=== PATIENT | female | born 1940 | race Caucasian/White ===

== ENCOUNTER → 2017-08-11 14:55 | Outpatient (CLI) | payer MEDICARE, SELFPAY | PROVIDERS: PCP Internal Medicine; Visit Provider Internal Medicine | DX: R00.2 Palpitations (principal) | CPT/HCPCS: 93005; 93225; 93226 ==

== ENCOUNTER → 2017-09-01 12:48 | Outpatient (CLI) | payer MEDICARE, SELFPAY ==
--- NOTE | 2017-09-01 | CA_ITS ---
PROCEDURE: 2-D M-mode and color Doppler study INDICATIONS FOR THE TEST: Chest pain COPD Heart Murmur Tobacco Smoking Palpitations+ Fatigue+ Syncope Edema Hypertension Diabetes Mellitus Rheumatic Fever SOB CASTANO Obesity Hyperlipidemia Family History HD Additional History PVC's PATIENT INFORMATION HEIGHT: 66 WEIGHT: 140 GENDER: F B/P: 153/95 2-D/M-MODE INTERPRETATION: 2-D MEASUREMENTS OBSERVED VALUES IN CMS Right Ventricular Dimension (RVDd) 2.4 Interventricular Septum (Thickness)(IVsd) 1.3 Left Ventricular Internal Dimensions(LVIDd) 2.9 Left Ventricular Posterior Wall (Thickness)(LVPWd) 1.0 Aortic Root 2.7 Aortic Cusp Separation 2.0 Left Atrial Dimensions (LAD) 3.7 2D 1. Left atrium is mildly enlarged, left ventricle is normal size, there is mild concentric left ventricular hypertrophy, visually estimated ejection fraction 55% with no obvious regional wall motion abnormality. 2. The right atrium and right ventricle are normal size and contractility. 3. The aortic valve is minimally thickened and fibrosed. 4. The mitral and tricuspid valve leaflets are minimally thickened 5. The pulmonic valve is poorly visualized. 6. No significant pericardial effusion noted. DOPPLER INTERROGATION: Doppler interrogation of the aortic, mitral and tricuspid valvular presence of mild to moderate mitral and mild tricuspid regurgitation, calculated right ventricular systolic pressure is 40 mmHg consistent with mild pulmonary hypertension. Grade 1 diastolic dysfunction seen with tissue Doppler evidence of raised left atrial pressure. CONCLUSION: 1. Mildly enlarged left atrium, normal left ventricular size, mild concentric left ventricular hypertrophy, visually estimated ejection fraction 55% with no obvious regional wall motion abnormality, grade 1 diastolic dysfunction seen with tissue Doppler evidence of raised left atrial pressure. 2. Mild to moderate mitral and mild tricuspid regurgitation 3. No significant pericardial effusion noted.
== END ==
PROVIDERS: Family Provider Internal Medicine; PCP Internal Medicine; Visit Provider Internal Medicine
DX: R00.2 Palpitations (principal); I49.3 Ventricular premature depolarization
CPT/HCPCS: 93306

== ENCOUNTER → 2017-09-10 10:13 | Outpatient (CLI) | payer MEDICARE, SELFPAY ==
[2017-09-10 11:04] LABS: Basophils % 0.9 % (0.1-2.0); Eosinophils # 0.1 K/mm3 (0.0-0.4); Eosinophils % 2.6 % (0.1-12.0); Hematocrit 48.1 % (37.0-47.0); Hemoglobin 15.6 g/dL (12.2-16.2); Lymphocytes % 19.7 K/mm3 (10-50); Mean Corpuscular HGB Conc 32.5 g/dL (31.8-35.4); Mean Corpuscular Hemoglobin 31.9 pg (27.0-31.2); Mean Corpuscular Volume 98.4 fl (81-99); Mean Platelet Volume 7.8 fl (7.4-10.4); Monocytes # 0.3 K/mm3 (0.1-1.0); Neutrophils # 3.4 K/mm3 (1.8-7.8); Neutrophils % 69.9 % (37.0-80.0); Platelet Count 257 K/mm3 (142-424); Red Blood Count 4.89 M/mm3 (4.20-5.40); White Blood Count 4.9 K/mm3 (4.8-10.8)
[2017-09-10 11:31] LABS: Alanine Aminotransferase 24 U/L (12-78); Albumin Level 3.8 gm/dL (3.4-5.0); Albumin/Globulin Ratio 1.1 (1.1-1.8); Alkaline Phosphatase 88 U/L (46-116); Anion Gap 10.4 mEq/L (5-15); Aspartate Amino Transferase 19 U/L (15-37); Bilirubin,Total 0.4 mg/dL (0.2-1.0); Blood Urea Nitrogen 18 mg/dL (7-18); Calcium 9.6 mg/dL (8.5-10.1); Carbon Dioxide 31 mmol/L (21.0-32.0); Chloride 105 mmol/L (98-107); Chol/HDL Ratio 3.3 (1-3.5); Cholesterol 203 mg/dL (140-200); Creatinine,Serum 0.67 mg/dL (0.55-1.02); Estimated Glomerular Filt Rate 86 ml/min (>60); GFR (African American) 104 ML/MIN (>60); Globulin 3.4 gm/dl (1.3-3.2); Glucose 99 mg/dL (74-106); HDL Cholesterol 61 mg/dL (29-89); LDL Cholesterol 118 mg/dL (0-130); Potassium 4.4 mmoL/L (3.5-5.1); Sodium 142 mmol/L (136-145); Total Protein,Serum 7.2 gm/dL (6.4-8.2); Triglycerides 122 mg/dL (30-200); VLDL Cholesterol 24 mg/dL (0-40)
[2017-09-11 19:01] LABS: Vitamin D 25 Hydroxy 41.2 ng/mL (30.0-100.0)
[2017-09-14 15:05] LABS: Cobalt, Plasma None Detected ug/L (0.0-0.9)
[2017-09-14 15:06] LABS: Chromium, Plasma 1.3 ug/L (0.1-2.1)
== END ==
PROVIDERS: Visit Provider Internal Medicine
DX: D72.819 Decreased white blood cell count, unspecified (principal); I10 Essential (primary) hypertension; N15.0 Balkan nephropathy; E55.9 Vitamin D deficiency, unspecified; R00.2 Palpitations; E78.5 Hyperlipidemia, unspecified
CPT/HCPCS: 36415; 80053; 80061; 82495; 82652; 83018; 85025

== ENCOUNTER → 2017-10-20 11:29 | Outpatient (CLI) | payer MEDICARE, SELFPAY | PROVIDERS: Visit Provider Internal Medicine | DX: T14.8XXA Other injury of unspecified body region, initial encounter (principal) | CPT/HCPCS: 36415; 87471 ==

== ENCOUNTER → 2017-11-20 13:04 | Outpatient (CLI) | payer MEDICARE, SELFPAY ==
[2017-11-20 13:28] LABS: Adenovirus F 40/41, stool Not Detected (NotDetected); Astrovirus Not Detected (NotDetected); Campylobacter Not Detected (NotDetected); Clostridium Difficile A/B, PCR Not Detected (NotDetected); Cryptosporidium Not Detected (NotDetected); Cyclospora Cayetanesis Not Detected (NotDetected); Entamoeba histolytica Not Detected (NotDetected); Enteroaggregative E coli Not Detected (NotDetected); Enteropathogenic E coli Not Detected (NotDetected); Enterotoxigenic E coli Not Detected (NotDetected); Giardia lamblia Not Detected (NotDetected); Norovirus Not Detected (NotDetected); Plesimonas Shigalloides, PCR Not Detected (NotDetected); Rotavirus A Not Detected (NotDetected); Salmonella, PCR Not Detected (NotDetected); Sapovirus Not Detected (NotDetected); Shiga-like toxin E coli Not Detected (NotDetected); Shigella Enterovasive E coli Not Detected (NotDetected); Vibrio Cholerae Not Detected (NotDetected); Vibrio, PCR Not Detected (NotDetected); Yersinia Entercolitica, PCR Not Detected (NotDetected)
[2017-11-20 15:37] LABS: Occult Blood,Stool Negative (Negative)
== END ==
PROVIDERS: Visit Provider Internal Medicine
DX: R19.7 Diarrhea, unspecified (principal)
CPT/HCPCS: 82272; 87045; 87177; 87205; 87507; G0328

== ENCOUNTER → 2018-03-29 10:23 | Outpatient (CLI) | payer MEDICARE, SELFPAY ==
[2018-03-29 11:01] LABS: Basophils % 0.7 % (0.1-2.0); Eosinophils # 0.1 K/mm3 (0.0-0.4); Eosinophils % 1.5 % (0.1-12.0); Hematocrit 48.8 % (37.0-47.0); Hemoglobin 15.7 g/dL (12.2-16.2); Lymphocytes # 0.9 K/mm3 (0.7-4.5); Lymphocytes % 17.6 K/mm3 (10-50); Mean Corpuscular HGB Conc 32.2 g/dL (31.8-35.4); Mean Corpuscular Hemoglobin 31.2 pg (27.0-31.2); Mean Platelet Volume 7.3 fl (7.4-10.4); Monocytes # 0.3 K/mm3 (0.1-1.0); Monocytes % 5.7 % (1.7-9.3); Neutrophils # 3.9 K/mm3 (1.8-7.8); Neutrophils % 74.5 % (37.0-80.0); Platelet Count 243 K/mm3 (142-424); Red Blood Count 5.03 M/mm3 (4.20-5.40); White Blood Count 5.2 K/mm3 (4.8-10.8)
[2018-03-29 12:07] LABS: Alanine Aminotransferase 20 U/L (12-78); Albumin Level 3.9 gm/dL (3.4-5.0); Albumin/Globulin Ratio 1.3 (1.1-1.8); Alkaline Phosphatase 79 U/L (46-116); Anion Gap 12.7 mEq/L (5-15); Aspartate Amino Transferase 18 U/L (15-37); Bilirubin,Total 0.6 mg/dL (0.2-1.0); Blood Urea Nitrogen 17 mg/dL (7-18); Calcium 9.1 mg/dL (8.5-10.1); Carbon Dioxide 30 mmol/L (21.0-32.0); Chloride 104 mmol/L (98-107); Cholesterol 255 mg/dL (140-200); Creatinine,Serum 0.72 mg/dL (0.55-1.02); Estimated Glomerular Filt Rate 79 ml/min (>60); GFR (African American) 95 ML/MIN (>60); Glucose 92 mg/dL (74-106); HDL Cholesterol 64 mg/dL (29-89); LDL Cholesterol 162 mg/dL (0-130); Potassium 4.7 mmoL/L (3.5-5.1); Sodium 142 mmol/L (136-145); Total Protein,Serum 6.9 gm/dL (6.4-8.2); Triglycerides 146 mg/dL (30-200); VLDL Cholesterol 29 mg/dL (0-40)
[2018-03-31 06:47] LABS: Cobalt, Plasma None Detected ug/L (0.0-0.9)
[2018-03-31 06:48] LABS: Chromium, Plasma 0.8 ug/L (0.1-2.1)
== END ==
PROVIDERS: PCP Internal Medicine; Visit Provider Internal Medicine
DX: D72.819 Decreased white blood cell count, unspecified (principal); I10 Essential (primary) hypertension; E78.5 Hyperlipidemia, unspecified; E55.9 Vitamin D deficiency, unspecified; R31.29 Other microscopic hematuria; Z96.643 Presence of artificial hip joint, bilateral
CPT/HCPCS: 36415; 80053; 80061; 82495; 82652; 83018; 85025

== ENCOUNTER → 2018-09-28 10:03 | Outpatient (CLI) | payer MEDICARE, SELFPAY ==
[2018-09-28 11:11] LABS: Basophils # 0.1 K/mm3 (0-0.2); Basophils % 0.7 % (0.1-2.0); Eosinophils # 0.2 K/mm3 (0.0-0.4); Eosinophils % 2.1 % (0.1-12.0); Hematocrit 50.8 % (37.0-47.0); Hemoglobin 16.6 g/dL (12.2-16.2); Lymphocytes # 1.8 K/mm3 (0.7-4.5); Lymphocytes % 22.8 % (10-50); Mean Corpuscular HGB Conc 32.7 g/dL (31.8-35.4); Mean Corpuscular Hemoglobin 31.4 pg (27.0-31.2); Mean Corpuscular Volume 95.9 fl (81-99); Mean Platelet Volume 7.2 fl (7.4-10.4); Monocytes # 0.5 K/mm3 (0.1-1.0); Monocytes % 6.8 % (1.7-9.3); Neutrophils # 5.2 K/mm3 (1.8-7.8); Neutrophils % 67.5 % (37.0-80.0); Platelet Count 328 K/mm3 (142-424); Red Cell Distribution Width 13.7 % (11.5-17.5); White Blood Count 7.7 K/mm3 (4.8-10.8)
[2018-09-28 14:02] LABS: Alanine Aminotransferase 30 U/L (12-78); Albumin Level 4.2 gm/dL (3.4-5.0); Albumin/Globulin Ratio 1.1 (1.1-1.8); Alkaline Phosphatase 83 U/L (46-116); Anion Gap 14.3 mEq/L (5-15); Aspartate Amino Transferase 11 U/L (15-37); Bilirubin,Total 0.4 mg/dL (0.2-1.0); Blood Urea Nitrogen 24 mg/dL (7-18); Calcium 9.5 mg/dL (8.5-10.1); Carbon Dioxide 28 mmol/L (21.0-32.0); Chloride 103 mmol/L (98-107); Chol/HDL Ratio 3.7 (1-3.5); Cholesterol 230 mg/dL (140-200); Creatinine,Serum 0.81 mg/dL (0.55-1.02); Estimated Glomerular Filt Rate 69 ml/min (>60); GFR (African American) 83 ML/MIN (>60); Globulin 3.7 gm/dl (1.3-3.2); Glucose 96 mg/dL (74-106); HDL Cholesterol 62 mg/dL (29-89); LDL Cholesterol 145 mg/dL (0-130); Potassium 4.3 mmoL/L (3.5-5.1); Sodium 141 mmol/L (136-145); Total Protein,Serum 7.9 gm/dL (6.4-8.2); Triglycerides 115 mg/dL (30-200); VLDL Cholesterol 23 mg/dL (0-40)
[2018-09-29 09:22] LABS: Homocyst(e)ine 13.1 umol/L (0.0-15.0)
== END ==
PROVIDERS: Visit Provider Internal Medicine
DX: I10 Essential (primary) hypertension (principal); E78.5 Hyperlipidemia, unspecified; E55.9 Vitamin D deficiency, unspecified; M15.0 Primary generalized (osteo)arthritis; D72.819 Decreased white blood cell count, unspecified
CPT/HCPCS: 36415; 80053; 80061; 82652; 83090; 85025; 86141

== ENCOUNTER 2019-02-03 15:00 | Outpatient (RCR) | payer MEDICARE, SELFPAY | END 2019-02-03 15:05 | disposition home or self-care (01) | LOC: PT 15:00 | PROVIDERS: PCP Internal Medicine; Visit Provider Podiatrist Foot & Ankle Surgery | DX: M77.32 Calcaneal spur, left foot (principal); M19.171 Post-traumatic osteoarthritis, right ankle and foot; M72.2 Plantar fascial fibromatosis | CPT/HCPCS: 97014; 97035; 97110; 97140; 97163; G0283 ==

== ENCOUNTER → 2019-10-20 14:37 | Outpatient (CLI) | payer MEDICARE, SELFPAY ==
--- NOTE | 2019-10-20 | CA_ITS ---
APPROVED REPORT Left Lower Extremity Venous Study for DVT. Soft Mud Molder: DARA Indications Lower Extremity Pain: Palpable Cord: Left Varicose Veins Vein Imaging CFV (L): compressive, spontaneous, phasic, augmentation FEM (L): compressive, spontaneous, phasic, augmentation POP (L): compressive, spontaneous, phasic, augmentation PTV (L): Compressible GSV (L): Compressible SSV (L): Compressible Peroneals (L):Compressible Findings No evidence of DVT or superficial thrombophlebitis in the veins scanned of the left lower extremity. Conclusion No evidence of DVT or superficial thrombophlebitis in the veins scanned of the left lower extremity. Electronically signed by : Bakari Marks MD 10/23/2019 17:36:02
== END ==
PROVIDERS: PCP Internal Medicine; Visit Provider Internal Medicine
DX: M79.605 Pain in left leg (principal)
CPT/HCPCS: 93971

== ENCOUNTER → 2020-05-28 10:12 | Outpatient (CLI) | payer MEDICARE, SELFPAY ==
[2020-05-28 10:58] LABS: Basophils # 0.1 K/mm3 (0-0.2); Eosinophils # 0.1 K/mm3 (0.0-0.4); Eosinophils % 1.6 % (0.1-12.0); Hematocrit 46.7 % (37.0-47.0); Hemoglobin 15.4 g/dL (12.2-16.2); Lymphocytes # 0.9 K/mm3 (0.7-4.5); Lymphocytes % 21.1 % (10-50); Mean Corpuscular HGB Conc 32.9 g/dL (31.8-35.4); Mean Corpuscular Hemoglobin 32.2 pg (27.0-31.2); Mean Corpuscular Volume 97.9 fl (81-99); Mean Platelet Volume 8.2 fl (7.4-10.4); Monocytes # 0.3 K/mm3 (0.1-1.0); Monocytes % 6.1 % (1.7-9.3); Neutrophils # 3.1 K/mm3 (1.8-7.8); Neutrophils % 70.2 % (37.0-80.0); Platelet Count 235 K/mm3 (142-424); Red Blood Count 4.77 M/mm3 (4.20-5.40); Red Cell Distribution Width 13.9 % (11.5-17.5); White Blood Count 4.5 K/mm3 (4.8-10.8)
[2020-05-28 12:37] LABS: Alanine Aminotransferase 17 U/L (12-78); Albumin Level 4.2 g/dl (3.5-5.0); Albumin/Globulin Ratio 1.6 (1.1-1.8); Alkaline Phosphatase 68 U/L (38-126); Amylase 83 U/L (30-110); Anion Gap 10.7 mEq/L (5-15); Aspartate Amino Transferase 29 U/L (14-36); Bilirubin,Total 0.5 mg/dl (0.2-1.3); Blood Urea Nitrogen 17 mg/dl (7-17); Calcium 9.6 mg/dl (8.4-10.2); Carbon Dioxide 29 mmol/L (22.0-30.0); Chloride 103 mmol/L (98-107); Chol/HDL Ratio 3.9 (1-3.5); Cholesterol 231 mg/dl (140-200); Estimated Glomerular Filt Rate 97 ml/min (>60); GFR (African American) 117 ML/MIN (>60); Globulin 2.6 g/dL (1.3-3.2); Glucose 103 mg/dl (74-100); HDL Cholesterol 60 mg/dl (40-60); Lipase 179 U/L (23-300); Potassium 4.7 mmoL/L (3.5-5.1); Sodium 138 mmol/L (136-145); Total Protein,Serum 6.8 g/dl (6.3-8.2); Triglycerides 129 mg/dl (30-150); VLDL Cholesterol 26 mg/dL (0-40)
[2020-05-28 12:48] LABS: Direct LDL Cholesterol 133.48 mg/dL (100-129)
[2020-05-29 12:04] LABS: C-Reactive Protein, Cardiac 2.19 mg/L (0.00-3.00)
== END ==
PROVIDERS: Visit Provider Internal Medicine
DX: I10 Essential (primary) hypertension (principal); E78.5 Hyperlipidemia, unspecified; E55.9 Vitamin D deficiency, unspecified; D72.819 Decreased white blood cell count, unspecified; M15.0 Primary generalized (osteo)arthritis; G57.91 Unspecified mononeuropathy of right lower limb; R10.13 Epigastric pain
CPT/HCPCS: 36415; 80053; 80061; 82150; 82306; 83690; 85025; 86141

== ENCOUNTER → 2020-08-16 11:40 | Outpatient (CLI) | payer MEDICARE, SELFPAY ==
[2020-08-16 12:01] LABS: Basophils % 0.6 % (0.1-2.0); Eosinophils # 0.1 K/mm3 (0.0-0.4); Eosinophils % 1.3 % (0.1-12.0); Hematocrit 48.5 % (37.0-47.0); Hemoglobin 15.9 g/dL (12.2-16.2); Lymphocytes # 0.9 K/mm3 (0.7-4.5); Lymphocytes % 15.7 % (10-50); Mean Corpuscular HGB Conc 32.7 g/dL (31.8-35.4); Mean Corpuscular Hemoglobin 31.1 pg (27.0-31.2); Mean Platelet Volume 7.5 fl (7.4-10.4); Monocytes # 0.3 K/mm3 (0.1-1.0); Monocytes % 5.8 % (1.7-9.3); Neutrophils # 4.4 K/mm3 (1.8-7.8); Neutrophils % 76.6 % (37.0-80.0); Platelet Count 253 K/mm3 (142-424); Red Blood Count 5.11 M/mm3 (4.20-5.40); Red Cell Distribution Width 13.7 % (11.5-17.5); White Blood Count 5.8 K/mm3 (4.8-10.8)
[2020-08-16 12:29] LABS: Erythrocyte Sedimentation Rate 4 mm/hr (0-30)
== END ==
PROVIDERS: Visit Provider Internal Medicine
DX: R51.9 Headache, unspecified (principal); H53.8 Other visual disturbances
CPT/HCPCS: 36415; 85025; 85651

== ENCOUNTER → 2021-05-26 14:59 | Outpatient (CLI) | payer MEDICARE, SELFPAY ==
[2021-05-26 15:36] LABS: Eosinophils # 0.1 K/mm3 (0.0-0.4); Eosinophils % 2.2 % (0.1-12.0); Hematocrit 44.9 % (37.0-47.0); Lymphocytes % 25.1 % (10-50); Mean Corpuscular HGB Conc 33.4 g/dL (31.8-35.4); Mean Corpuscular Hemoglobin 32.3 pg (27.0-31.2); Mean Corpuscular Volume 96.7 fl (81-99); Mean Platelet Volume 8.5 fl (7.4-10.4); Monocytes # 0.3 K/mm3 (0.1-1.0); Monocytes % 7.9 % (1.7-9.3); Neutrophils # 2.6 K/mm3 (1.8-7.8); Neutrophils % 63.8 % (37.0-80.0); Platelet Count 231 K/mm3 (142-424); Red Blood Count 4.65 M/mm3 (4.20-5.40); Red Cell Distribution Width 13.5 % (11.5-17.5); White Blood Count 4.1 K/mm3 (4.8-10.8)
[2021-05-26 16:03] LABS: Chloride 101 mmol/L (98-107); Potassium 4.5 mmoL/L (3.5-5.1); Sodium 139 mmol/L (136-145)
[2021-05-26 16:05] LABS: Blood Urea Nitrogen 19 mg/dl (7-17)
[2021-05-26 16:06] LABS: Alanine Aminotransferase 19 U/L (12-78); Albumin Level 4.1 g/dl (3.5-5.0); Alkaline Phosphatase 63 U/L (38-126); Anion Gap 12.5 mEq/L (5-15); Aspartate Amino Transferase 34 U/L (14-36); Bilirubin,Total 0.1 mg/dl (0.2-1.3); Calcium 8.9 mg/dl (8.4-10.2); Carbon Dioxide 30 mmol/L (22.0-30.0); Cholesterol 192 mg/dl (140-200); Estimated Glomerular Filt Rate 81 ml/min (>60); GFR (African American) 98 ML/MIN (>60); Globulin 2.1 g/dL (1.3-3.2); Glucose 83 mg/dl (74-100); HDL Cholesterol 56 mg/dl (40-60); Total Protein,Serum 6.2 g/dl (6.3-8.2); Triglycerides 88 mg/dl (30-150); VLDL Cholesterol 18 mg/dL (0-40)
[2021-05-26 16:15] LABS: C-Reactive Protein 1.4 mg/L (0-4)
[2021-05-26 16:17] LABS: Direct LDL Cholesterol 103.95 mg/dL (100-129)
[2021-05-26 17:14] LABS: MANUAL DIFFERENTIAL MANUAL DIFFERENTIAL (MANUAL DIFF)
[2021-05-26 19:33] LABS: Chol/HDL Ratio 3.4 (1-3.5)
[2021-05-26 23:16] LABS: Eosinophils % 2 % (0-3); Lymphocytes % 30 % (10-50); Monocytes % 2 % (2-9); Neutrophils % 65 % (42-76); Total Cells Counted 100
[2021-05-26 23:17] LABS: Macrocytosis 1+; Platelet Estimate Normal
[2021-05-28 09:13] LABS: Homocyst(e)ine 19.8 umol/L (0.0-19.2)
== END ==
PROVIDERS: Visit Provider Internal Medicine
DX: R00.2 Palpitations (principal); I10 Essential (primary) hypertension; E78.5 Hyperlipidemia, unspecified; E55.9 Vitamin D deficiency, unspecified; D72.819 Decreased white blood cell count, unspecified
CPT/HCPCS: 80053; 80061; 83090; 85007; 85014; 85018; 85048; 85049; 86140

== ENCOUNTER → 2021-09-02 11:03 | Outpatient (CLI) | payer MEDICARE, SELFPAY | PROVIDERS: PCP Internal Medicine; Visit Provider Internal Medicine | DX: Z20.822 Contact with and (suspected) exposure to COVID-19 (principal) | CPT/HCPCS: C9803; U0003; U0005 ==

== ENCOUNTER → 2021-12-12 13:21 | Outpatient (CLI) | payer MEDICARE, SELFPAY ==
[2021-12-12 14:05] LABS: Basophils # 0.1 K/mm3 (0-0.2); Basophils % 1.2 % (0.1-2.0); Eosinophils # 0.1 K/mm3 (0.0-0.4); Eosinophils % 3.2 % (0.1-12.0); Hematocrit 46.4 % (37.0-47.0); Lymphocytes % 24.8 % (10-50); Mean Corpuscular HGB Conc 32.4 g/dL (31.8-35.4); Mean Corpuscular Hemoglobin 32.8 pg (27.0-31.2); Mean Corpuscular Volume 101.3 fl (81-99); Mean Platelet Volume 9.3 fl (7.4-10.4); Monocytes # 0.3 K/mm3 (0.1-1.0); Monocytes % 7.2 % (1.7-9.3); Neutrophils # 2.6 K/mm3 (1.8-7.8); Neutrophils % 63.5 % (37.0-80.0); Platelet Count 237 K/mm3 (142-424); Red Blood Count 4.58 M/mm3 (4.20-5.40); White Blood Count 4.1 K/mm3 (4.8-10.8)
[2021-12-12 14:12] LABS: Alanine Aminotransferase 17 U/L (12-78); Albumin Level 3.9 g/dl (3.5-5.0); Albumin/Globulin Ratio 1.7 (1.1-1.8); Alkaline Phosphatase 65 U/L (38-126); Anion Gap 11.8 mEq/L (5-15); Aspartate Amino Transferase 29 U/L (14-36); Blood Urea Nitrogen 21 mg/dl (7-17); Calcium 9.1 mg/dl (8.4-10.2); Carbon Dioxide 28 mmol/L (22.0-30.0); Chloride 104 mmol/L (98-107); Chol/HDL Ratio 3.9 (1-3.5); Cholesterol 212 mg/dl (140-200); Estimated Glomerular Filt Rate 81 ml/min (>60); GFR (African American) 97 ML/MIN (>60); Globulin 2.3 g/dL (1.3-3.2); Glucose 95 mg/dl (74-100); HDL Cholesterol 54 mg/dl (40-60); Potassium 4.8 mmoL/L (3.5-5.1); Sodium 139 mmol/L (136-145); Total Protein,Serum 6.2 g/dl (6.3-8.2); Triglycerides 77 mg/dl (30-150); VLDL Cholesterol 15 mg/dL (0-40)
[2021-12-12 14:14] LABS: Bilirubin,Total < 0.1 mg/dl (0.2-1.3)
[2021-12-12 14:23] LABS: Direct LDL Cholesterol 119.28 mg/dL (100-129)
[2021-12-12 15:01] LABS: Vitamin B12 440 pg/mL (239-931)
[2021-12-13 09:15] LABS: Homocyst(e)ine 15.3 umol/L (0.0-19.2)
[2021-12-14 08:20] LABS: C-Reactive Protein, Cardiac 2.38 mg/L (0.00-3.00)
== END ==
PROVIDERS: PCP Internal Medicine; Visit Provider Internal Medicine
DX: I10 Essential (primary) hypertension (principal); E78.5 Hyperlipidemia, unspecified; E55.9 Vitamin D deficiency, unspecified; M15.0 Primary generalized (osteo)arthritis
CPT/HCPCS: 80053; 80061; 82607; 83090; 85025; 86141

== ENCOUNTER → 2022-01-07 13:16 | Outpatient (CLI) | payer MEDICARE, SELFPAY ==
--- NOTE | 2022-01-07 13:18 | US_ITS ---
FINAL REPORT CLINICAL HISTORY: BENIGN LIPOMATOUS NEOPLASM; palpable area at top of sternum just medial to left sternoclavicular joint FINDINGS: US CHEST Limited sonographic images were obtained of the soft tissues of the chest. At the area of the palpable abnormality is a 5 mm cyst or other focal fluid collection. This lies medial to the left sternoclavicular joint. IMPRESSION: 5 mm cyst or other focal fluid collection at the area of interest. Reviewed, Interpreted and Dictated by Rohan Wilhelm III, MD Transcribed by Khoi Dunn Authenticated and [facility]
== END ==
PROVIDERS: PCP Internal Medicine; Visit Provider Internal Medicine
DX: D17.9 Benign lipomatous neoplasm, unspecified (principal)
CPT/HCPCS: 76604

== ENCOUNTER → 2022-06-16 12:33 | Outpatient (CLI) | payer MEDICARE, SELFPAY ==
[2022-06-16 13:36] LABS: Basophils # 0.1 K/mm3 (0-0.2); Eosinophils # 0.1 K/mm3 (0.0-0.4); Eosinophils % 2.7 % (0.1-12.0); Hematocrit 46.5 % (37.0-47.0); Hemoglobin 14.7 g/dL (12.2-16.2); Lymphocytes # 1.1 K/mm3 (0.7-4.5); Lymphocytes % 23.2 % (10-50); Mean Corpuscular HGB Conc 31.5 g/dL (31.8-35.4); Mean Corpuscular Hemoglobin 31.1 pg (27.0-31.2); Mean Corpuscular Volume 98.6 fl (81-99); Mean Platelet Volume 8.9 fl (7.4-10.4); Monocytes # 0.3 K/mm3 (0.1-1.0); Monocytes % 6.9 % (1.7-9.3); Neutrophils # 3.1 K/mm3 (1.8-7.8); Neutrophils % 66.2 % (37.0-80.0); Platelet Count 279 K/mm3 (142-424); Red Blood Count 4.71 M/mm3 (4.20-5.40); Red Cell Distribution Width 13.9 % (11.5-17.5); White Blood Count 4.6 K/mm3 (4.8-10.8)
[2022-06-16 14:50] LABS: Chloride 102 mmol/L (98-107)
[2022-06-16 14:51] LABS: Potassium 4.3 mmoL/L (3.5-5.1); Sodium 139 mmol/L (136-145)
[2022-06-16 14:53] LABS: Alanine Aminotransferase 18 U/L (12-78); Alkaline Phosphatase 66 U/L (38-126); Aspartate Amino Transferase 30 U/L (14-36); Bilirubin,Total 0.4 mg/dl (0.2-1.3); Blood Urea Nitrogen 18 mg/dl (7-17); Estimated Glomerular Filt Rate 81 ml/min (>60); GFR (African American) 97 ML/MIN (>60)
[2022-06-16 14:54] LABS: Albumin Level 4.1 g/dl (3.5-5.0); Albumin/Globulin Ratio 1.7 (1.1-1.8); Anion Gap 12.3 mEq/L (5-15); Calcium 8.8 mg/dl (8.4-10.2); Carbon Dioxide 29 mmol/L (22.0-30.0); Chol/HDL Ratio 3.9 (1-3.5); Cholesterol 220 mg/dl (140-200); Globulin 2.4 g/dL (1.3-3.2); Glucose 86 mg/dl (74-100); HDL Cholesterol 57 mg/dl (40-60); Total Protein,Serum 6.5 g/dl (6.3-8.2); Triglycerides 121 mg/dl (30-150); VLDL Cholesterol 24 mg/dL (0-40)
[2022-06-16 15:00] LABS: C-Reactive Protein 1.2 mg/L (0-4)
[2022-06-16 15:05] LABS: Direct LDL Cholesterol 115.36 mg/dL (100-129)
== END ==
PROVIDERS: PCP Internal Medicine; Visit Provider Internal Medicine
DX: I49.3 Ventricular premature depolarization (principal); I10 Essential (primary) hypertension; E78.5 Hyperlipidemia, unspecified; E55.9 Vitamin D deficiency, unspecified; D72.819 Decreased white blood cell count, unspecified; M15.0 Primary generalized (osteo)arthritis
CPT/HCPCS: 80053; 80061; 85025; 86140

== ENCOUNTER → 2022-12-18 13:17 | Outpatient (CLI) | payer MEDICARE, SELFPAY ==
[2022-12-18 14:17] LABS: Basophils % 0.6 % (0.1-2.0); Eosinophils # 0.1 K/mm3 (0.0-0.4); Eosinophils % 1.6 % (0.1-12.0); Hematocrit 44.3 % (37.0-47.0); Hemoglobin 13.8 g/dL (12.2-16.2); Lymphocytes % 21.9 % (10-50); Mean Corpuscular Hemoglobin 30.2 pg (27.0-31.2); Mean Corpuscular Volume 97.5 fl (81-99); Mean Platelet Volume 8.9 fl (7.4-10.4); Monocytes # 0.3 K/mm3 (0.1-1.0); Monocytes % 6.4 % (1.7-9.3); Neutrophils # 3.1 K/mm3 (1.8-7.8); Neutrophils % 69.5 % (37.0-80.0); Platelet Count 256 K/mm3 (142-424); Red Blood Count 4.55 M/mm3 (4.20-5.40); Red Cell Distribution Width 14.4 % (11.5-17.5); White Blood Count 4.5 K/mm3 (4.8-10.8)
[2022-12-18 14:43] LABS: Alanine Aminotransferase 16 U/L (12-78); Albumin Level 3.9 g/dl (3.5-5.0); Albumin/Globulin Ratio 1.8 (1.1-1.8); Alkaline Phosphatase 68 U/L (38-126); Anion Gap 9.6 mEq/L (5-15); Aspartate Amino Transferase 25 U/L (14-36); Bilirubin,Total 0.4 mg/dl (0.2-1.3); Blood Urea Nitrogen 15 mg/dl (7-17); Carbon Dioxide 28 mmol/L (22.0-30.0); Chloride 107 mmol/L (98-107); Chol/HDL Ratio 3.6 (1-3.5); Cholesterol 236 mg/dl (140-200); Estimated Glomerular Filt Rate 96 ml/min (>60); GFR (African American) 116 ML/MIN (>60); Globulin 2.2 g/dL (1.3-3.2); Glucose 92 mg/dl (74-100); HDL Cholesterol 65 mg/dl (40-60); Potassium 4.6 mmoL/L (3.5-5.1); Sodium 140 mmol/L (136-145); Total Protein,Serum 6.1 g/dl (6.3-8.2); Triglycerides 80 mg/dl (30-150); VLDL Cholesterol 16 mg/dL (0-40)
[2022-12-18 14:54] LABS: C-Reactive Protein 1.7 mg/L (0-4); Direct LDL Cholesterol 133.76 mg/dL (100-129)
== END ==
PROVIDERS: PCP Internal Medicine; Visit Provider Internal Medicine
DX: I10 Essential (primary) hypertension (principal); D72.819 Decreased white blood cell count, unspecified; E55.9 Vitamin D deficiency, unspecified; E78.5 Hyperlipidemia, unspecified; M15.0 Primary generalized (osteo)arthritis; N60.19 Diffuse cystic mastopathy of unspecified breast; G57.91 Unspecified mononeuropathy of right lower limb
CPT/HCPCS: 80053; 80061; 85025; 86140

== ENCOUNTER → 2023-02-11 10:55 | Outpatient (CLI) | payer MEDICARE, SELFPAY | PROVIDERS: PCP Internal Medicine; Visit Provider Internal Medicine | DX: R00.2 Palpitations (principal) | CPT/HCPCS: 93225; 93226 ==

== ENCOUNTER → 2023-03-01 12:47 | Outpatient (CLI) | payer MEDICARE, SELFPAY ==
[2023-03-02 13:17] LABS: H. pylori Breath Test Negative (Negative)
== END ==
PROVIDERS: PCP Internal Medicine; Visit Provider Internal Medicine
DX: I49.3 Ventricular premature depolarization (principal)
CPT/HCPCS: 83013

== ENCOUNTER → 2023-03-10 10:04 | Outpatient (CLI) | payer MEDICARE, SELFPAY ==
--- NOTE | 2023-03-10 10:09 | CA_ITS ---
APPROVED REPORT EXAM: Comprehensive 2D, Doppler, and color-flow Echocardiogram Sewer: Marissa Christianson RVT Ht: 5 ft 6 in Wt: 140lbs BSA: 1.72 BP: 153/95 mmHg Indications: PVC'S,PALPS,FATIGUE,COPD,CP,SMOKER 2D Dimensions LVOT 2.04 cm (M/F) 1.5-2.5 LA Volume 62.90 mL LA Volume Index 36.57 mL/m2 (M/F) 16-34 M-Mode Dimensions RVDd 2.32 cm (0.9-2.6) LA Diam 4.07 cm (1.9-4.0) LVDd 4.32 cm (3.5-5.7) Ao Diam 3.35 cm (2.0-3.7) LVDs 2.64 cm (3.5-5.7) IVSd 0.96 cm (0.6-1.1) PWd 0.64 cm (0.6-1.1) EF (Teich) 69.50% FS 38.90% EDV (Teich) 84.00 mL TAPSE 2.56 (<1.7) ESV (Teich) 25.60 mL LV Diastology E Decel Time 190.00 (160-240 msec) E/A Ratio 0.8 MED E' 8.20 (< 7 cm/sec) E'/MED E' Ratio 9.89 (>14) LAT E' 9.40 (<10 cm/sec) E/LAT E' Ratio 8.63 (>14) Aortic Valve AO Peak GR. 8.90 mmHg AO VTI 138.02 (18-25 cm) Mitral Valve MV E Max Sandeep. 81.00 (40-130 cm/s) MV A Velocity 103.00 (40-130 cm/s) E/A Ratio 0.79 MV Decel. Time 190.00 (160-240 ms) MV PHT 56.00 ms Pulmonary Valve PV Peak Velocity 78.00 (50-150 cm/s) Tricuspid Valve TR P. Velocity 299.00 cm/s RAP Estimate 10.00 mmHg RVSP 45.70 mmHg Left Ventricle The left ventricle is normal size. The left ventricular systolic function is normal. The left ventricular ejection fraction is within the normal range. There is increased LV wall thickness. There is normal LV segmental wall motion. The diastolic function is indeterminate. LVEF is 55% Right Ventricle The right ventricle is mildly dilated. The right ventricular systolic function is normal. Atria The left atrium is mildly dilated. Right atrium is mildly dilated. There is no Doppler evidence of interatrial shunt. Aortic Valve The aortic valve is mildly thickened. The aortic valve is trileaflet. There is no aortic valvular stenosis. Trace aortic regurgitation. Mitral Valve The mitral valve leaflets are mildly thickened. No evidence of mitral valve stenosis. Mild mitral regurgitation. Tricuspid Valve The tricuspid valve leaflets are thin and pliable. Mild tricuspid regurgitation. RVSP is 30-35 mmHg. Pulmonic Valve The pulmonary valve is normal in structure. Trace pulmonic regurgitation. Great Vessels The aortic root is normal in size. The ascending aorta is normal in size. IVC is normal in size and collapses >50% with inspiration. Pericardium There is no pericardial effusion. Other Information Study Quality: Fair Conclusion Normal biventricular systolic function. Mildly dilated RV. Mild biatrial dilatation. Mild MR mild TR. Elevated RVSP 30-35 mmHg. Electronically signed by : Glenda Malcolm MD 03/10/2023 11:53:46
== END ==
PROVIDERS: PCP Internal Medicine; Visit Provider Internal Medicine
DX: I49.3 Ventricular premature depolarization (principal)
CPT/HCPCS: 93306

== ENCOUNTER 2023-07-07 14:36 | Outpatient (CLI) | payer MEDICARE, SELFPAY ==
[2023-07-07 15:22] LABS: Basophils % 0.8 % (0.1-2.0); Eosinophils # 0.1 K/mm3 (0.0-0.4); Eosinophils % 3.2 % (0.1-12.0); Hematocrit 41.4 % (37.0-47.0); Hemoglobin 13.5 g/dL (12.2-16.2); Lymphocytes % 22.1 % (10-50); Mean Corpuscular HGB Conc 32.7 g/dL (31.8-35.4); Mean Corpuscular Hemoglobin 30.3 pg (27.0-31.2); Mean Corpuscular Volume 92.7 fl (81-99); Monocytes # 0.4 K/mm3 (0.1-1.0); Monocytes % 7.8 % (1.7-9.3); Neutrophils % 66.2 % (37.0-80.0); Platelet Count 248 K/mm3 (142-424); Red Blood Count 4.46 M/mm3 (4.20-5.40); Red Cell Distribution Width 15.6 % (11.5-17.5); White Blood Count 4.5 K/mm3 (4.8-10.8)
[2023-07-07 16:46] LABS: Alanine Aminotransferase 21 U/L (12-78); Albumin Level 3.9 g/dl (3.5-5.0); Albumin/Globulin Ratio 1.9 (1.1-1.8); Alkaline Phosphatase 72 U/L (38-126); Anion Gap 9.1 mEq/L (5-15); Aspartate Amino Transferase 33 U/L (14-36); Bilirubin,Total 0.4 mg/dl (0.2-1.3); Blood Urea Nitrogen 18 mg/dl (7-17); Calcium 9.1 mg/dl (8.4-10.2); Carbon Dioxide 30 mmol/L (22.0-30.0); Chloride 104 mmol/L (98-107); Chol/HDL Ratio 3.7 (1-3.5); Cholesterol 202 mg/dl (140-200); Estimated Glomerular Filt Rate 80 ml/min (>60); GFR (African American) 97 ML/MIN (>60); Globulin 2.1 g/dL (1.3-3.2); Glucose 84 mg/dl (74-100); HDL Cholesterol 54 mg/dl (40-60); Potassium 5.1 mmoL/L (3.5-5.1); Sodium 138 mmol/L (136-145); Triglycerides 95 mg/dl (30-150); VLDL Cholesterol 19 mg/dL (0-40)
[2023-07-07 16:57] LABS: Direct LDL Cholesterol 109.56 mg/dL (100-129)
[2023-07-07 18:48] LABS: 25-OH Vitamin D, Total 49.3 ng/mL (30-100)
[2023-07-08 08:22] LABS: C-Reactive Protein, Cardiac 1.61 mg/L (0.00-3.00)
== END 2023-07-07 23:59 ==
LOC: LAB.DROPOF 14:36
PROVIDERS: PCP Internal Medicine; Visit Provider Internal Medicine
DX: I10 Essential (primary) hypertension (principal); D72.819 Decreased white blood cell count, unspecified; E55.9 Vitamin D deficiency, unspecified; E78.5 Hyperlipidemia, unspecified; M15.0 Primary generalized (osteo)arthritis; N60.19 Diffuse cystic mastopathy of unspecified breast; G57.91 Unspecified mononeuropathy of right lower limb; Z96.643 Presence of artificial hip joint, bilateral
CPT/HCPCS: 80053; 80061; 82306; 85025; 86141

== ENCOUNTER 2023-09-17 12:31 | Outpatient (CLI) | payer MEDICARE, SELFPAY | END 2023-09-17 23:59 | LOC: LAB.DROPOF 12:32 | PROVIDERS: PCP Internal Medicine; Visit Provider Internal Medicine | DX: K13.0 Diseases of lips (principal) | CPT/HCPCS: 87252 ==

== ENCOUNTER 2024-02-03 09:40 | Outpatient (CLI) | payer MEDICARE, SELFPAY ==
[2024-02-03 17:51] LABS: Basophils # 0.1 K/mm3 (0-0.2); Basophils % 0.9 % (0.1-2.0); Eosinophils # 0.2 K/mm3 (0.0-0.4); Eosinophils % 3.1 % (0.1-12.0); Hematocrit 39.7 % (37.0-47.0); Hemoglobin 12.1 g/dL (12.2-16.2); Lymphocytes % 18.8 % (10-50); Mean Corpuscular HGB Conc 30.5 g/dL (31.8-35.4); Mean Corpuscular Hemoglobin 26.8 pg (27.0-31.2); Mean Corpuscular Volume 87.9 fl (81-99); Mean Platelet Volume 9.3 fl (7.4-10.4); Monocytes # 0.4 K/mm3 (0.1-1.0); Neutrophils # 3.8 K/mm3 (1.8-7.8); Neutrophils % 70.2 % (37.0-80.0); Platelet Count 298 K/mm3 (142-424); Red Blood Count 4.52 M/mm3 (4.20-5.40); Red Cell Distribution Width 17.2 % (11.5-17.5); White Blood Count 5.4 K/mm3 (4.8-10.8)
[2024-02-03 17:57] LABS: Alanine Aminotransferase 16 U/L (12-78); Albumin Level 3.8 g/dl (3.5-5.0); Albumin/Globulin Ratio 1.5 (1.1-1.8); Alkaline Phosphatase 63 U/L (38-126); Anion Gap 9.7 mEq/L (5-15); Aspartate Amino Transferase 29 U/L (14-36); Bilirubin,Total 0.4 mg/dl (0.2-1.3); Blood Urea Nitrogen 14 mg/dl (7-17); Calcium 9.2 mg/dl (8.4-10.2); Carbon Dioxide 27 mmol/L (22.0-30.0); Chloride 105 mmol/L (98-107); Chol/HDL Ratio 3.5 (1-3.5); Cholesterol 215 mg/dl (140-200); Estimated Glomerular Filt Rate 80 ml/min (>60); GFR (African American) 97 ML/MIN (>60); Globulin 2.5 g/dL (1.3-3.2); Glucose 82 mg/dl (74-100); HDL Cholesterol 61 mg/dl (40-60); Potassium 4.7 mmoL/L (3.5-5.1); Sodium 137 mmol/L (136-145); Total Protein,Serum 6.3 g/dl (6.3-8.2); Triglycerides 115 mg/dl (30-150); VLDL Cholesterol 23 mg/dL (0-40)
[2024-02-03 18:07] LABS: Direct LDL Cholesterol 116.47 mg/dL (100-129)
[2024-02-03 18:56] LABS: Vitamin B12 500 pg/mL (239-931)
== END 2024-02-03 23:59 | disposition home or self-care (01) ==
LOC: LAB.DROPOF 02-04 09:51
PROVIDERS: PCP Internal Medicine; Visit Provider Internal Medicine
DX: I10 Essential (primary) hypertension (principal); D72.819 Decreased white blood cell count, unspecified; E78.5 Hyperlipidemia, unspecified
CPT/HCPCS: 80053; 80061; 82607; 85025

== ENCOUNTER 2024-05-15 14:55 | Outpatient (CLI) | payer MEDICARE, SELFPAY | END 2024-05-15 23:59 | disposition home or self-care (01) | LOC: LAB.DROPOF 05-16 12:23 | PROVIDERS: PCP Internal Medicine; Visit Provider Internal Medicine | DX: J98.8 Other specified respiratory disorders (principal); B97.89 Other viral agents as the cause of diseases classified elsewhere; Z20.822 Contact with and (suspected) exposure to COVID-19 | CPT/HCPCS: 87265; 87635 ==

== ENCOUNTER 2024-05-18 13:58 | Outpatient (CLI) | payer MEDICARE, SELFPAY ==
--- NOTE | 2024-05-18 14:02 | XR_ITS ---
FINAL REPORT CLINICAL HISTORY: Right hand pain and swelling, questioning gout. FINDINGS: Right hand Three views were obtained. There is no fracture or dislocation. There are moderate degenerative changes. No definite bony erosion is identified. There is no soft tissue nodule. IMPRESSION: Moderate degenerative changes. Reviewed, Interpreted and Dictated by Rohan Wilhelm III, MD Transcribed by Irene Ibrahim Authenticated and [facility]
[2024-05-18 14:18] LABS: Basophils % 0.3 % (0.1-2.0); Eosinophils # 0.1 K/mm3 (0.0-0.4); Eosinophils % 0.4 % (0.1-12.0); Hematocrit 33.5 % (37.0-47.0); Hemoglobin 10.7 g/dL (12.2-16.2); Lymphocytes # 0.8 K/mm3 (0.7-4.5); Lymphocytes % 6.5 % (10-50); Mean Corpuscular Hemoglobin 25.5 pg (27.0-31.2); Mean Corpuscular Volume 79.7 fl (81-99); Mean Platelet Volume 7.4 fl (7.4-10.4); Monocytes # 0.6 K/mm3 (0.1-1.0); Monocytes % 5.4 % (1.7-9.3); Neutrophils # 10.1 K/mm3 (1.8-7.8); Neutrophils % 87.4 % (37.0-80.0); Platelet Count 372 K/mm3 (142-424); White Blood Count 11.6 K/mm3 (4.8-10.8)
[2024-05-18 14:20] LABS: MANUAL DIFFERENTIAL MANUAL DIFFERENTIAL (MANUAL DIFF)
[2024-05-18 14:38] LABS: Chloride 99 mmol/L (98-107); Sodium 129 mmol/L (136-145)
[2024-05-18 14:39] LABS: Potassium 4.2 mmoL/L (3.5-5.1)
[2024-05-18 14:41] LABS: Blood Urea Nitrogen 14 mg/dl (7-17); Estimated Glomerular Filt Rate 80 ml/min (>60); GFR (African American) 97 ML/MIN (>60)
[2024-05-18 14:42] LABS: Anion Gap 6.2 mEq/L (5-15); Calcium 8.7 mg/dl (8.4-10.2); Carbon Dioxide 28 mmol/L (22.0-30.0); Glucose 109 mg/dl (74-100)
[2024-05-18 15:09] LABS: Lymphocytes % 15 % (10-50); Neutrophils % 85 % (42-76); Total Cells Counted 100
[2024-05-18 15:10] LABS: Hypochromasia 1+; Platelet Estimate Normal
[2024-05-18 15:25] LABS: Erythrocyte Sedimentation Rate > 140 mm/hr (0-30)
[2024-05-19 12:18] LABS: Iron 26 ug/dL (37-170)
[2024-05-19 12:28] LABS: Total Iron Binding Capacity 340 ug/dL (265-497)
== END 2024-05-18 23:59 | disposition home or self-care (01) ==
LOC: LAB 13:59
PROVIDERS: PCP Internal Medicine; Visit Provider Internal Medicine
DX: M79.89 Other specified soft tissue disorders (principal); M19.90 Unspecified osteoarthritis, unspecified site; M79.641 Pain in right hand; I10 Essential (primary) hypertension; D64.9 Anemia, unspecified
CPT/HCPCS: 73130; 80048; 83540; 83550; 84550; 85007; 85025; 85027; 85651

== ENCOUNTER 2024-05-24 16:17 | Outpatient (CLI) | payer MEDICARE, SELFPAY ==
[2024-05-24 16:47] LABS: White Blood Count 12.2 K/mm3 (4.8-10.8)
[2024-05-24 16:48] LABS: Basophils % 1.2 % (0.1-2.0); Eosinophils % 1.8 % (0.1-12.0); Hematocrit 36.4 % (37.0-47.0); Hemoglobin 11.2 g/dL (12.2-16.2); Lymphocytes % 11.5 % (10-50); Mean Corpuscular HGB Conc 30.8 g/dL (31.8-35.4); Mean Corpuscular Hemoglobin 24.5 pg (27.0-31.2); Mean Corpuscular Volume 79.5 fl (81-99); Mean Platelet Volume 9.2 fl (7.4-10.4); Monocytes % 5.3 % (1.7-9.3); Neutrophils # 9.3 K/mm3 (1.8-7.8); Neutrophils % 76.4 % (37.0-80.0); Platelet Count 630 K/mm3 (142-424); Red Blood Count 4.58 M/mm3 (4.20-5.40); Red Cell Distribution Width 18.6 % (11.5-17.5)
[2024-05-24 16:49] LABS: Basophils # 0.2 K/mm3 (0-0.2); Eosinophils # 0.2 K/mm3 (0.0-0.4); Lymphocytes # 1.4 K/mm3 (0.7-4.5); Monocytes # 0.7 K/mm3 (0.1-1.0)
[2024-05-24 16:57] LABS: Anion Gap 11.3 mEq/L (5-15); Blood Urea Nitrogen 22 mg/dl (7-17); Calcium 9.3 mg/dl (8.4-10.2); Carbon Dioxide 31 mmol/L (22.0-30.0); Chloride 97 mmol/L (98-107); Estimated Glomerular Filt Rate 69 ml/min (>60); GFR (African American) 83 ML/MIN (>60); Glucose 82 mg/dl (74-100); Potassium 5.3 mmoL/L (3.5-5.1); Sodium 134 mmol/L (136-145)
== END 2024-05-24 23:59 | disposition home or self-care (01) ==
LOC: LAB.DROPOF 16:17
PROVIDERS: PCP Internal Medicine; Visit Provider Internal Medicine
DX: E87.1 Hypo-osmolality and hyponatremia (principal); D64.9 Anemia, unspecified; D50.9 Iron deficiency anemia, unspecified
CPT/HCPCS: 80048; 85025

== ENCOUNTER 2024-06-22 09:18 | Outpatient (CLI) | payer MEDICARE, SELFPAY ==
[2024-06-22 17:06] LABS: Red Blood Count 4.34 M/mm3 (4.20-5.40); White Blood Count 7.9 K/mm3 (4.8-10.8)
[2024-06-22 17:07] LABS: Basophils # 0.1 K/mm3 (0-0.2); Basophils % 0.8 % (0.1-2.0); Eosinophils # 0.1 K/mm3 (0.0-0.4); Eosinophils % 1.6 % (0.1-12.0); Hematocrit 35.1 % (37.0-47.0); Hemoglobin 10.8 g/dL (12.2-16.2); Lymphocytes # 0.9 K/mm3 (0.7-4.5); Lymphocytes % 11.4 % (10-50); Mean Corpuscular HGB Conc 30.8 g/dL (31.8-35.4); Mean Corpuscular Hemoglobin 24.9 pg (27.0-31.2); Mean Corpuscular Volume 80.9 fl (81-99); Monocytes # 0.6 K/mm3 (0.1-1.0); Monocytes % 7.5 % (1.7-9.3); Neutrophils # 6.2 K/mm3 (1.8-7.8); Neutrophils % 78.2 % (37.0-80.0); Platelet Count 337 K/mm3 (142-424)
[2024-06-22 17:28] LABS: Chloride 99 mmol/L (98-107); Potassium 5.1 mmoL/L (3.5-5.1); Sodium 132 mmol/L (136-145)
[2024-06-22 17:31] LABS: Anion Gap 10.1 mEq/L (5-15); Blood Urea Nitrogen 23 mg/dl (7-17); Calcium 9.8 mg/dl (8.4-10.2); Carbon Dioxide 28 mmol/L (22.0-30.0); Estimated Glomerular Filt Rate 60 ml/min (>60); GFR (African American) 73 ML/MIN (>60); Glucose 85 mg/dl (74-100)
== END 2024-06-22 23:59 | disposition home or self-care (01) ==
LOC: LAB.DROPOF 06-23 09:18
PROVIDERS: PCP Internal Medicine; Visit Provider Internal Medicine
DX: E87.1 Hypo-osmolality and hyponatremia (principal); I10 Essential (primary) hypertension; D50.9 Iron deficiency anemia, unspecified; D64.9 Anemia, unspecified
CPT/HCPCS: 80048; 85025; 85044

== ENCOUNTER 2024-08-03 09:25 | Outpatient (CLI) | payer MEDICARE, SELFPAY ==
[2024-08-03 13:34] LABS: Basophils # 0.1 K/mm3 (0-0.2); Basophils % 1.4 % (0.1-2.0); Eosinophils # 0.3 K/mm3 (0.0-0.4); Eosinophils % 4.4 % (0.1-12.0); Hematocrit 30.8 % (37.0-47.0); Lymphocytes # 0.8 K/mm3 (0.7-4.5); Lymphocytes % 14.6 % (10-50); Mean Corpuscular HGB Conc 29.2 g/dL (31.8-35.4); Mean Corpuscular Hemoglobin 22.8 pg (27.0-31.2); Mean Platelet Volume 10.2 fl (7.4-10.4); Monocytes # 0.4 K/mm3 (0.1-1.0); Monocytes % 7.5 % (1.7-9.3); Neutrophils # 4.1 K/mm3 (1.8-7.8); Neutrophils % 71.6 % (37.0-80.0); Platelet Count 360 K/mm3 (142-424); Red Blood Count 3.95 M/mm3 (4.20-5.40); Red Cell Distribution Width 19.2 % (11.5-17.5); White Blood Count 5.7 K/mm3 (4.8-10.8)
[2024-08-03 14:30] LABS: Alanine Aminotransferase 20 U/L (12-78); Albumin/Globulin Ratio 1.8 (1.1-1.8); Alkaline Phosphatase 69 U/L (38-126); Anion Gap 10.6 mEq/L (5-15); Aspartate Amino Transferase 29 U/L (14-36); Bilirubin,Total 0.2 mg/dl (0.2-1.3); Blood Urea Nitrogen 15 mg/dl (7-17); Calcium 9.2 mg/dl (8.4-10.2); Carbon Dioxide 28 mmol/L (22.0-30.0); Chloride 104 mmol/L (98-107); Chol/HDL Ratio 3.4 (1-3.5); Cholesterol 205 mg/dl (140-200); Estimated Glomerular Filt Rate 80 ml/min (>60); GFR (African American) 97 ML/MIN (>60); Globulin 2.2 g/dL (1.3-3.2); Glucose 85 mg/dl (74-100); HDL Cholesterol 60 mg/dl (40-60); Potassium 4.6 mmoL/L (3.5-5.1); Sodium 138 mmol/L (136-145); Total Protein,Serum 6.2 g/dl (6.3-8.2); Triglycerides 125 mg/dl (30-150); VLDL Cholesterol 25 mg/dL (0-40)
[2024-08-03 14:41] LABS: Direct LDL Cholesterol 99.49 mg/dL (100-129)
[2024-08-03 15:25] LABS: Vitamin B12 312 pg/mL (239-931)
[2024-08-08 20:12] LABS: 1,25 Dihydroxy Vitamin D 38 pg/mL (.); 1,25-Dihydroxy, Vitamin D-2 <10 pg/mL (.); 1,25-Dihydroxy, Vitamin D-3 38 pg/mL (.)
== END 2024-08-03 23:59 | disposition home or self-care (01) ==
LOC: LAB.DROPOF 08-04 13:16
PROVIDERS: PCP Internal Medicine; Visit Provider Internal Medicine
DX: E87.1 Hypo-osmolality and hyponatremia (principal); I10 Essential (primary) hypertension; E78.5 Hyperlipidemia, unspecified; D64.9 Anemia, unspecified; D72.819 Decreased white blood cell count, unspecified; E55.9 Vitamin D deficiency, unspecified; Z68.23 Body mass index [BMI] 23.0-23.9, adult
CPT/HCPCS: 80053; 80061; 82607; 82652; 85025

== ENCOUNTER 2025-02-01 11:30 | Outpatient (CLI) | payer MEDICARE, SELFPAY ==
--- OUTSIDE RECORDS SUMMARY | 2024-12-20 20:00 | XMS_ITS | Clinical Summary ---
Author Organization Unknown Care Team Providers Care Nib Adjuster Name Role Phone NASRIN COLE, KIRSTY Unavailable Unavailable LEATHA DAVILA, FRANCIS Unavailable Unavailable BEVERLY CORTEZ, NICHOLE Unavailable Unavailable Payers Payer Name Policy Type Policy Number Effective Date Expira tion Date MEDICARE.[facility] [id number] Problems Condition Name Condition Details Condition Category Status Onset Date Resolution Date Last Treatment Date Treating Clinician Comments AFTERCARE FOLLOWING SURGERY FOR NEOPLASM Active 10-26 00:00: 00 MALIGNANT NEOPLASM OF COLON, UNSPECIFIED Active 10-26 00:00: 00 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 10-26 00:00: 00 ENCOUNTER FOR ATTENTION TO ILEOSTOMY Active 10-26 00:00: 00 ESSENTIAL (PRIMARY) HYPERTENSION Active 10-26 00:00: 00 PERIPHERAL VASCULAR DISEASE, UNSPECIFIED Active 10-26 00:00: 00 LOW BACK PAIN, UNSPECIFIED Active 10-26 00:00: 00 OTHER CHRONIC PAIN Active 10-26 00:00: 00 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 Active 10-26 00:00: 00 ABNORMAL WEIGHT LOSS Active 10-26 00:00: 00 ACQUIRED ABSENCE OF OTHER SPECIFIED PARTS OF DIGESTIVE TRACT Active 10-26 00:00: 00 BODY MASS INDEX [BMI] 23.0-23.9, ADULT Active 10-26 00:00: 00 Allergies, Adverse Reactions, Alerts Allergy Name Allergy Type Status Severity Reaction(s) Onset Date Inactive Date Treating Clinician Comments MORPHINE Propensity to adverse reactions Active 10-26 11:16: 34 XARELTO Propensity to adverse reactions Active 10-26 11:16: 41 AMOXICILLIN CLAVULANIC Propensity to adverse reactions Active 10-26 11:16: 48 AZITHROMYCIN Propensity to adverse reactions Active 10-26 11:16: 57 Medications Ordered Medication Name Filled Medication Name Start Date Stop Date Current Medication? Ordering Clinician Indication Dosage Frequency Signature (SIG) Comments Components amlodipine 2.5 mg tablet 10-04 00:00: 00 Yes [id number] BLOOD PRESSURE 1 tablet ONCE DAILY 1 tablet ONCE DAILY (route: oral) Med Classific ation: Cardiovas cular Therapy Agents ondansetron 4 mg disintegrat ing tablet 10-04 00:00: 00 10-26 00:00 :00 No [id number] Per instruc tions EVERY 6 HOURS NEEDED Per instructio ns EVERY 6 HOURS NEEDED (route: oral) Med Classific ation: Gastroint estinal Therapy Agents pravastatin 20 mg tablet 10-04 00:00: 00 10-26 00:00 :00 No [id number] Per instruc tions ONCE DAILY AT Per instructio ns ONCE DAILY AT (route: oral) Med Classific ation: Cardiovas cular Therapy Agents metronidazo le 500 mg tablet 10-03 00:00: 00 10-26 00:00 :00 No [id number] Per instruc tions AT 4 EVENING AT 6 EVENING Per instructio ns AT 4 EVENING AT 6 EVENING (route: oral) Med Classific ation: Anti-Infe ctive Agents neomycin 500 mg tablet 10-03 00:00: 00 10-26 00:00 :00 No [id number] Per instruc tions AT 4 EVENING AND AT 6 EVENING Per instructio ns AT 4 EVENING AND AT 6 EVENING (route: oral) Med Classific ation: Anti-Infe ctive Agents gabapentin 100 mg capsule 10-26 00:00: 00 Yes [id number] SCIATIC PAIN 1 capsule DAILY 1 capsule DAILY (route: oral) Med Classific ation: Central Nervous System Agents Vital Signs Vital Name Observation Time Observation Value Commen ts Temperature 2024-12-21 15:36:00.000 98.1 [degF] Temperature 2024-12-04 09:41:00.000 97.9 [degF] Temperature 2024-11-21 15:45:00.000 98.6 [degF] Temperature 2024-11-15 13:35:00.000 97.7 [degF] Temperature 2024-11-09 12:23:00.000 97.7 [degF] Temperature 2024-11-03 17:23:00.000 97.3 [degF] Temperature 2024-10-26 12:11:00.000 97.6 [degF] BMI (%) 2024-10-26 12:11:00.000 23 kg/m2 Height 2024-10-26 12:11:00.000 66 [in_us] Pulse 2024-12-21 15:36:00.000 77 /min Pulse 2024-12-04 09:41:00.000 66 /min Pulse 2024-11-21 15:45:00.000 67 /min Pulse 2024-11-15 13:35:00.000 67 /min Pulse 2024-11-09 12:23:00.000 86 /min Pulse 2024-11-03 17:23:00.000 73 /min Pulse 2024-10-26 12:11:00.000 60 /min Respirations 2024-12-21 15:36:00.000 18 /min Respirations 2024-12-04 09:41:00.000 18 /min Respirations 2024-11-21 15:45:00.000 18 /min Respirations 2024-11-15 13:35:00.000 18 /min Respirations 2024-11-09 12:23:00.000 18 /min Respirations 2024-11-03 17:23:00.000 18 /min Respirations 2024-10-26 12:11:00.000 18 /min Weight (lbs) 2024-10-26 12:11:00.000 148 [lb_av] Systolic Blood Pressure 2024-12-21 15:36:00.000 132 mm [Hg] Systolic Blood Pressure 2024-12-04 09:41:00.000 130 mm [Hg] Systolic Blood Pressure 2024-11-21 15:45:00.000 160 mm [Hg] Systolic Blood Pressure 2024-11-15 13:35:00.000 128 mm [Hg] Systolic Blood Pressure 2024-11-09 12:23:00.000 128 mm [Hg] Systolic Blood Pressure 2024-11-03 17:23:00.000 138 mm [Hg] Systolic Blood Pressure 2024-10-26 12:11:00.000 140 mm [Hg] Diastolic Blood Pressure 2024-12-21 15:36:00.000 77 mm [Hg] Diastolic Blood Pressure 2024-12-04 09:41:00.000 72 mm [Hg] Diastolic Blood Pressure 2024-11-21 15:45:00.000 80 mm [Hg] Diastolic Blood Pressure 2024-11-15 13:35:00.000 64 mm [Hg] Diastolic Blood Pressure 2024-11-09 12:23:00.000 82 mm [Hg] Diastolic Blood Pressure 2024-11-03 17:23:00.000 82 mm [Hg] Diastolic Blood Pressure 2024-10-26 12:11:00.000 72 mm [Hg] Plan of Treatment Planned Activity Planned Date Details Comments Future Scheduled Test RN TO OBSE RVE, ASSESS, EVALUATE, AND DEVELOP AN INDIVIDUALIZED PLAN OF CARE. AGENCY MAY ACCEPT ORDERS FROM CONSULTING PHYSICIANS PCP RN TO OBSERVE AND ASSESS, CLASSROOM MONITOR/COVERING MACHINE OPERATOR TO OBSERVE FOR RISK FOR FALLS AND INSTRUCT IN FALL PREVENTION, HOME SAFETY, MEDICATION MANAGEMENT, INFECTION PREVENTION, AND NUTRITION MANAGEMENT. RN/CLASSROOM MONITOR/COVERING MACHINE OPERATOR NURSE MAY PERFORM O2 SATURATION LEVEL ON ADMISSION AND PRN FOR SOB FOR RN TO ASSESS/CLASSROOM MONITOR TO OBSERVE PATIENT, WITH NOTIFICATION TO THE PHYSICIAN IF SATURATION IS 90% IN THE ABSENCE OF MORE SPECIFIC PARAMETERS FROM THE PHYSICIAN. AGENCY MAY PERFORM A RESUMPTION OF CARE VISIT FOLLOWING ANY HOSPITAL ADMISSION. RN/CLASSROOM MONITOR/COVERING MACHINE OPERATOR TO MONITOR CO-MORBID CONDITIONS LISTED ON THE PLAN OF CARE AND ANY NEW CONDITIONS THAT PRESENT THEMSELVES DURING THIS EPISODE TO IDENTIFY CHANGES AND INTERVENE TO MINIMIZE COMPLICATIONS. [code = RN TO OBSERVE, ASSESS, EVALUATE, AND DEVELOP AN INDIVIDUALIZED PLAN OF CARE. AGENCY MAY ACCEPT ORDERS FROM CONSULTING PHYSICIANS PCP RN TO OBSERVE AND ASSESS, CLASSROOM MONITOR/COVERING MACHINE OPERATOR TO OBSERVE FOR RISK FOR FALLS AND INSTRUCT IN FALL PREVENTION, HOME SAFETY, MEDICATION MANAGEMENT, INFECTION PREVENTION, AND NUTRITION MANAGEMENT. RN/CLASSROOM MONITOR/COVERING MACHINE OPERATOR NURSE MAY PERFORM O2 SATURATION LEVEL ON ADMISSION AND PRN FOR SOB FOR RN TO ASSESS/CLASSROOM MONITOR TO OBSERVE PATIENT, WITH NOTIFICATION TO THE PHYSICIAN IF SATURATION IS 90% IN THE ABSENCE OF MORE SPECIFIC PARAMETERS FROM THE PHYSICIAN. AGENCY MAY PERFORM A RESUMPTION OF CARE VISIT FOLLOWING ANY HOSPITAL ADMISSION. RN/CLASSROOM MONITOR/COVERING MACHINE OPERATOR TO MONITOR CO-MORBID CONDITIONS LISTED ON THE PLAN OF CARE AND ANY NEW CONDITIONS THAT PRESENT THEMSELVES DURING THIS EPISODE TO IDENTIFY CHANGES AND INTERVENE TO MINIMIZE COMPLICATIONS.] Future Scheduled Test MEDICATION MANAGEMENT; RN/CLASSROOM MONITOR/COVERING MACHINE OPERATOR TO REVIEW MEDICATIONS FOR INTERACTIONS, EFFECTIVENESS OF DRUG THERAPY, AND SIGNS/SYMPTOMS OF ADVERSE REACTIONS. MAY INSTRUCT AND REINFORCE MEDICATION TEACHING RELATED TO THE USE OF MEDICATIONS, DOSAGE, FREQUENCY, PURPOSE, SIDE EFFECTS, AND TO REPORT COMPLICATIONS. [code = MEDICATION MANAGEMENT; RN/CLASSROOM MONITOR/COVERING MACHINE OPERATOR TO REVIEW MEDICATIONS FOR INTERACTIONS, EFFECTIVENESS OF DRUG THERAPY, AND SIGNS/SYMPTOMS OF ADVERSE REACTIONS. MAY INSTRUCT AND REINFORCE MEDICATION TEACHING RELATED TO THE USE OF MEDICATIONS, DOSAGE, FREQUENCY, PURPOSE, SIDE EFFECTS, AND TO REPORT COMPLICATIONS.] Future Scheduled Test CARDIOVASC ULAR SYSTEM; RN TO ASSESS/TEACH, CLASSROOM MONITOR/COVERING MACHINE OPERATOR TO OBSERVE/TEACH RELATED TO ALTERED CARDIOVASCULAR STATUS TO MINIMIZE COMPLICATIONS AND REDUCE HOSPITALIZATION. [code = CARDIOVASCULAR SYSTEM; RN TO ASSESS/TEACH, CLASSROOM MONITOR/COVERING MACHINE OPERATOR TO OBSERVE/TEACH RELATED TO ALTERED CARDIOVASCULAR STATUS TO MINIMIZE COMPLICATIONS AND REDUCE HOSPITALIZATION.] Future Scheduled Test HYPERTENSI ON MANAGEMENT; RN TO ASSESS AND TEACH, CLASSROOM MONITOR/COVERING MACHINE OPERATOR TO OBSERVE AND TEACH WARNING SIGNS AND SYMPTOMS TO AVOID HOSPITALIZATION. [code = HYPERTENSION MANAGEMENT; RN TO ASSESS AND TEACH, CLASSROOM MONITOR/COVERING MACHINE OPERATOR TO OBSERVE AND TEACH WARNING SIGNS AND SYMPTOMS TO AVOID HOSPITALIZATION.] Future Scheduled Test PAIN MANAG EMENT; RN TO ASSESS AND TEACH, COVERING MACHINE OPERATOR/CLASSROOM MONITOR TO OBSERVE AND TEACH AND PROVIDE EDUCATION ON PAIN MANAGEMENT TECHNIQUES. [code = PAIN MANAGEMENT; RN TO ASSESS AND TEACH, COVERING MACHINE OPERATOR/CLASSROOM MONITOR TO OBSERVE AND TEACH AND PROVIDE EDUCATION ON PAIN MANAGEMENT TECHNIQUES.] Future Scheduled Test GASTROINTE STINAL MANAGEMENT; RN TO ASSESS AND TEACH, COVERING MACHINE OPERATOR/CLASSROOM MONITOR TO OBSERVE AND TEACH RELATED TO ALTERED GASTROINTESTINAL STATUS TO MINIMIZE COMPLICATIONS AND REDUCE HOSPITALIZATION. [code = GASTROINTESTINAL MANAGEMENT; RN TO ASSESS AND TEACH, COVERING MACHINE OPERATOR/CLASSROOM MONITOR TO OBSERVE AND TEACH RELATED TO ALTERED GASTROINTESTINAL STATUS TO MINIMIZE COMPLICATIONS AND REDUCE HOSPITALIZATION.] Future Scheduled Test RN TO ASSE SS/TEACH, CLASSROOM MONITOR/COVERING MACHINE OPERATOR TO OBSERVE/TEACH WARNING SIGNS AND SYMPTOMS TO AVOID HOSPITALIZATION. MONITOR SURGICAL INCISION FOR S/S OF INFECTION. [code = RN TO ASSESS/TEACH, CLASSROOM MONITOR/COVERING MACHINE OPERATOR TO OBSERVE/TEACH WARNING SIGNS AND SYMPTOMS TO AVOID HOSPITALIZATION. MONITOR SURGICAL INCISION FOR S/S OF INFECTION.] Future Scheduled Test COLOSTOMY/ ILEOSTOMY TEACHING/MANAGEMENT; RN/COVERING MACHINE OPERATOR/CLASSROOM MONITOR TO INSTRUCT PATIENT/CAREGIVER ON ILEOSTOMY MANAGEMENT INCLUDING APPLIANCE TYPE, USAGE, AND STOMAL CARE. RN/COVERING MACHINE OPERATOR/CLASSROOM MONITOR MAY PERFORM OSTOMY APPLIANCE CHANGE AND STOMA CARE EACH VISIT NEEDED. [code = COLOSTOMY/ILEOSTOMY TEACHING/MANAGEMENT; RN/COVERING MACHINE OPERATOR/CLASSROOM MONITOR TO INSTRUCT PATIENT/CAREGIVER ON ILEOSTOMY MANAGEMENT INCLUDING APPLIANCE TYPE, USAGE, AND STOMAL CARE. RN/COVERING MACHINE OPERATOR/CLASSROOM MONITOR MAY PERFORM OSTOMY APPLIANCE CHANGE AND STOMA CARE EACH VISIT NEEDED.] Future Scheduled Test ANEMIA MAN AGEMENT; RN TO ASSESS AND TEACH, COVERING MACHINE OPERATOR/CLASSROOM MONITOR TO OBSERVE AND TEACH AND PROVIDE EDUCATION ON ANEMIA. [code = ANEMIA MANAGEMENT; RN TO ASSESS AND TEACH, COVERING MACHINE OPERATOR/CLASSROOM MONITOR TO OBSERVE AND TEACH AND PROVIDE EDUCATION ON ANEMIA.] Future Scheduled Test FALL REDUC TION MANAGEMENT; RN TO ASSESS AND OBSERVE, CLASSROOM MONITOR/COVERING MACHINE OPERATOR TO OBSERVE FALL RISK FACTORS AND EDUCATE PATIENT/CAREGIVER ON STRATEGIES TO MINIMIZE THE RISK OF FALLING. [code = FALL REDUCTION MANAGEMENT; RN TO ASSESS AND OBSERVE, CLASSROOM MONITOR/COVERING MACHINE OPERATOR TO OBSERVE FALL RISK FACTORS AND EDUCATE PATIENT/CAREGIVER ON STRATEGIES TO MINIMIZE THE RISK OF FALLING.] Goal 2024-12-21 Patient Goal - E DUCATEFOR INDEPENDENT APPLICATION BY CAREGIVER Goal Provider Goal - A PLAN OF CARE WILL BE ESTABLISHED THAT MEETS THE PATIENT S NEEDS. PATIENT WILL DEMONSTRATE OXYGEN SATURATION WITHIN NORMAL LIMITS OR PATIENT S OPTIMAL LEVEL ESTABLISHED BY THE PHYSICIAN THROUGHOUT CARE. CHANGES TO CO-MORBID CONDITIONS AND ANY NEW CONDITIONS WILL BE IDENTIFIED AND REPORTED TO THE PHYSICIAN. Goal Provider Goal - PATIENT/CAREGIVER TO VERBALIZE, AND CONSISTENTLY DEMONSTRATE EFFECTIVE, SAFE MANAGEMENT OF MEDICATION INCLUDING KNOWLEDGE OF EFFECTIVENESS, POTENTIAL SIDE EFFECTS AND DRUG REACTIONS AND WHEN TO CONTACT THE APPROPRIATE CARE PROVIDER. PATIENT/CAREGIVER WILL BE ABLE TO VERBALIZE UNDERSTANDING OF MEDICATION REGIMEN AND ACCURATELY TAKE MEDICATIONS PRESCRIBED WITHOUT ADVERSE EFFECTS BY 4 WEEKS Goal Provider Goal - PATIENT / CAREGIVER WILL VERBALIZE/DEMONSTRATE UNDERSTANDING OF MEASURES TO MANAGE ALTERED CARDIOVASCULAR STATUS BY 4 WEEKS Goal Provider Goal - PATIENT / CAREGIVER WILL VERBALIZE/DEMONSTRATE AN ABILITY TO ADHERE TO SELF-MANAGEMENT OF HTN TO MINIMIZE COMPLICATIONS AND AVOID HOSPITALIZATION BY END OF EPISODE. Goal Provider Goal - PATIENT / CAREGIVER WILL VERBALIZE / DEMONSTRATE UNDERSTANDING OF PAIN CONTROL MEASURES BY 4 WEEKS Goal Provider Goal - PATIENT / CAREGIVER WILL VERBALIZE/DEMONSTRATE UNDERSTANDING OF MEASURES TO MANAGE ALTERED GASTROINTESTINAL STATUS BY END OF EPISODE. Goal Provider Goal - PATIENT/CAREGIVER WILL VERBALIZE/DEMONSTRATE AN ABILITY TO ADHERE TO SELF-MANAGEMENT OF BOWEL RESECTION TO MINIMIZE COMPLICATIONS AND AVOID HOSPITALIZATION BY END OF EPISODE. Goal Provider Goal - PATIENT / CAREGIVER WILL BE ABLE TO VERBALIZE/DEMONSTRATE APPROPRIATE ILEOSTOMY CARE MANAGEMENT BY 4 WEEKS Goal Provider Goal - PATIENT/CAREGIVER WILL VERBALIZE UNDERSTANDING OF CARE AND MANAGEMENT OF ANEMIA BY END OF EPISODE. Goal Provider Goal - PATIENT/CAREGIVER WILL VERBALIZE/DEMONSTRATE UNDERSTANDING OF FALL RISK FACTORS AND IMPLEMENT STRATEGIES TO MINIMIZE FALL RISK. PATIENT/CAREGIVER WILL VERBALIZE/DEMONSTRATE AN ABILITY TO ADHERE TO FALL REDUCTION SELF-MANAGEMENT AND LIFE-STYLE CHANGES BY 4 WEEKS Reason for Visit INDEPENDENT IN THE COMMUNITY Encounters Start Date/Time End Date/Time Encounter Type Admission Type Attending [facility] Care Department Encounter ID Discharge Date Discharge Status Discharge Condition Discharge Reason Percent Goals Met 2024-10-26 00:00:00 2024-12-21 00:00:00 Outpatient NEW ADMISSION [facility] [id number] 2024-12-21 00:00:00 DISCHARGE TO HOME OR SELF CARE INDEPENDEN T IN THE COMMUNITY HH - GOALS MET 100.00
--- OUTSIDE RECORDS SUMMARY | 2024-12-25 14:21 | XMS_ITS | Encounter Summary ---
Author Organization [facility] Address [address] [place] [address] Care Team Providers Care Stiff Leg Derrick Operator Name Role Phone Ham Petit MD Primary Care Provider [phone] Reason for Referral * MRI/CAT/PET Scan (Routine) - Closed Specialty Diagnoses / Procedures [facility] To Contact Radiology Diagnoses Malignant neoplasm of ascending colon Procedures CT Abdomen Pelvis With Contrast Nemo Banda MD [address] [place] [address] Phone: tel: fax: Referral ID Status Reason Start Date Expiration Date Visits Re quested Visits Authorized [id number] Closed 11/01/2024 01/31/2026 1 1 * MRI/CAT/PET Scan (Routine) - Closed Specialty Diagnoses / Procedures [facility] To Contact Radiology Diagnoses Malignant neoplasm of ascending colon Procedures CT Chest With Contrast Nemo Banda MD [address] [place] [address] Phone: tel: fax: Referral ID Status Reason Start Date Expiration Date Visits Re quested Visits Authorized [id number] Closed 11/01/2024 01/31/2026 1 1 Reason for Visit * MRI/CAT/PET Scan (Routine) - Closed Specialty Diagnoses / Procedures [facility] To Contact Radiology Diagnoses Malignant neoplasm of ascending colon Procedures CT Abdomen Pelvis With Contrast Nemo Banda MD [address] [facility] [address] [place] [address] Phone: tel: fax: Referral ID Status Reason Start Date Expiration Date Visits Re quested Visits Authorized [id number] Closed 11/01/2024 01/31/2026 1 1 Encounter Details Date Type Department Care Team (Latest Contact Info) Description 12/25/2024 2:21 PM EDT - 12/25/2024 11:59 PM EDT Hospital Encounter [facility] [place] [address] [facility] [address] [place] [address] Malignant neoplasm of ascending colon Discharge Disposition: Home or Self Care Social History Tobacco Use Types Packs/Day Years Used Date Smoking Tobacco: Never Smokeless Tobacco: Never Alcohol Use Standard Drinks/Week Comments No 0 (1 standard drink = 0.6 oz pur e alcohol) [facility] Utilities Answer Date Recorded In the past 12 months has [employer], gas, oil, or water [employer] threatened to shut off services in your home? No 10/12/2024 AUDIT-C Answer Date Recorded Q1: How often do you have a drink containing alcohol? Never 10/10/2024 Q2: How many drinks containi ng alcohol do you have on a typical day when you are drinking? Patient does not drink Q3: How often do you have si x or more drinks on one occasion? Never 10/10/2024 Overall Financial Resource Strain (CARDIA) Answe r Date Recorded How hard is it for you to pa y for the very basics like food, housing, medical care, and heating? Not very hard 10/12/2024 [facility] Occupat ional [facility] - Occupational Stress Questionnaire Answer Date Recorded Do you feel stress - tense, restless, nervous, or anxious, or unable to sleep at night because your mind is troubled all the time - these days? Not at all 10/12/2024 Exercise Vital Sign Answer Date Recorde d On average, how many days pe r week do you engage in moderate to strenuous exercise (like a brisk walk)? Patient declined On average, how many minutes do you engage in exercise at this level? Patient declined 10/12/2024 Hunger Vital Sign Answer Date Recorded Within the past 12 months, y ou worried that your food would run out before you got the money to buy more. Never true 10/13/19 25 Within the past 12 months, t he food you bought just didn't last and you didn't have money to get more. Never true 10/12/2024 PRAPARE - Transportation Answer Date Re corded In the past 12 months, has l ack of transportation kept you from medical appointments or from getting medications? No 01/2025 In the past 12 months, has l ack of transportation kept you from meetings, work, or from getting things needed for daily living? No 10/12/2024 Abuse Screen Answer Date Recorded Feels Unsafe at Home or Work/School no 10/10/2024 Feels Threatened by Someone no 11/2024 Does Anyone Try to Keep You From Having Contact with Others or Doing Things Outside Your Home? no 10/10/2024 Physical Signs of Abuse Present no 10/10/2024 Housing Stability Answer Date Recorded Current Living Arrangements home 01/2025 Potentially Unsafe Housing Conditions none 10/12/2024 Family and Community Support Answer Thom e Recorded If for any reason you need h elp with day-to-day activities such as bathing, preparing meals, shopping, managing finances, etc., do you get the help you need? I get all the help I need 10/12/2024 How often do you feel lonely or isolated from those around you? Never 10/12/2024 Employment Answer Date Recorded Do you want help finding or keeping work or a job? I do not need or want help 10/12/2024 Disabilities Answer Date Recorded Difficulty Concentrating, Remembering or Making Decisions no 10/10/2024 Difficulty Managing Errands Independently yes 10/10/2024 Education Answer Date Recorded Do you want help with school or training? For example, starting or completing job training or getting a high school diploma, GED or equivalent No 10/12/2024 Preferred Language Honduran 10/12/2024 PHQ-2 Answer Date Recorded Patient Health Questionnaire-2 Score 0 10/12/2024 Comments No Sex and Gender Information Value Date Recorded Sex Assigned at Not on file Legal Sex Female 12:00 PM EDT Gender Identity Not on file Sexual Orientation Not on file documented as of this encounter Medications at Time of Discharge amLODIPine (NORVASC) 10 MG tablet Take 1 tablet by mouth Daily. 10/19/2024 amLODIPine (NORVASC) 2.5 MG tablet Take 1 tablet by mouth Daily. cholecalciferol (VITAMIN D3) 1000 UNITS tablet Take 1 tablet by mouth Daily. gabapentin (NEURONTIN) 100 MG capsuleIndication s:S/P colectomy Take 1 capsule by mouth Daily. 5 capsule 10/18/2024 documented as of this encounter Plan of Treatment Upcoming Encounters Date Type Department Care Team (Late st Contact Info) Description 02/14/2025 2:30 PM EDT Pre-Admission Testing [facility] T [address] [place] [address] 02/20/2025 10:32 AM EDT Hospital Encounter [facility] [place] [address] [place] [address] Ian Decker MD [address] [place] [address] 02/20/2025 10:32 AM EDT - 02/20/2025 12:24 PM EDT Surgery [facility] [address] [place] [address] Ian Decker MD [address] [place] [address] ILEOSTOMY TAKEDOWN 04/12/2025 1:45 PM EST Office Visit [facility] [address] [facility] [address] [place] [id number] Nemo Banda MD [address] [place] [address] 10/04/2025 1:00 PM EDT Office Visit [facility] [address] [place] [address] Braulio Choudhary PA [address] [place] [address] Scheduled Procedures Name Priority Associated Diagnoses Date/Ti me ILEOSTOMY TAKEDOWN 10:32 AM EDT documented as of this encounter Procedures Procedure Name Priority Date/Time Associated Diagnosis Comments CT ABDOMEN PELVIS W CONTRAST Routine 12/25/2024 3:34 PM EDT Malignant neoplasm of ascending colon CT CHEST W CONTRAST Routine 12/25/2024 3 :34 PM EDT Malignant neoplasm of ascending colon documented in this encounter Results * CT Abdomen Pelvis With Contrast (12/25/2024 3:34 PM EDT) Anatomical Region Laterality Modality Abdomen, Pelvis N/A Computed Tomogra phy 12/28/2024 5:58 AM EDT Impressions 12/28/2024 6:12 AM EDT Impression: Likely expected evolution of postoperative changes following prior colectomy as above. No specific evidence of recurrent or metastatic disease in the chest, abdomen and pelvis. No evidence of obstruction or leak. Electronically Signed: Jesus Alberto Wilburn MD 12/28/2024 6:12 AM EDT Workstation ID: [id number] Narrative 12/28/2024 6:[address] ABDOMEN PELVIS W CONTRAST, CT CHEST W CONTRAST DIAGNOSTIC Date of Exam: 12/25/2024 3:17 PM EDT Indication: colon cancer. Comparison: 09/19/2024. 10/14/2024 Technique: Axial CT images were obtained of the abdomen and pelvis following the uneventful intravenous administration of 85 mL Isovue-300. Reconstructed coronal and sagittal images were also obtained. Automated exposure control and iterative construction methods were used. Findings: Chest: There is no pathologic axillary adenopathy or other worrisome body wall soft tissue finding in the chest. There is no pleural or pericardial effusion. There is no pathologic mediastinal adenopathy. Mildly atherosclerotic, nonaneurysmal thoracic aorta. The pulmonary arteries are well-opacified centrally. Evaluation of the osseous structures demonstrates multilevel spondylosis without evidence of acute fracture or aggressive osseous lesion. The lung gonzalez demonstrate no evidence of acute infectious process or distinct suspicious focal pulmonary nodularity. CT abdomen pelvis: The body wall soft tissues demonstrate no acute findings, with right lower quadrant ostomy noted. The osseous structures demonstrate multilevel spondylosis change and prior posterior fusion at L4-5. The liver, spleen, pancreas and bilateral adrenal glands appear normal. Unremarkable gallbladder. The kidneys appear normal. Postoperative changes are again noted from prior colectomy with right lower quadrant ileostomy. There is no free fluid or overt pneumoperitoneum. Some thickening along the peritoneal margins on the right appears smooth and may reflect evolving postoperative changes and trace layering blood products. There is no new suspicious mesenteric nodularity or retroperitoneal lymphadenopathy. The pelvic viscera demonstrate no acute findings. Procedure Note Braulio Wilburn MD - 12/28/2024 CT ABDOMEN PELVIS W CONTRAST, CT CHEST W CONTRAST DIAGNOSTIC Date of Exam: 12/25/2024 3:17 PM EDT Indication: colon cancer. Comparison: 09/19/2024. 10/14/2024 Technique: Axial CT images were obtained of the abdomen and pelvisfollowing the uneventful intravenous administration of 85 mL Isovue-300.Reconstructed coronal and sagittal images were also obtained. Automatedexposure control and iterative construction methods were used. Findings: Chest: There is no pathologic axillary adenopathy or other worrisome bodywall soft tissue finding in the chest. There is no pleural or pericardialeffusion. There is no pathologic mediastinal adenopathy. Mildlyatherosclerotic, nonaneurysmal thoracic aorta. The pulmonary arteries are well-opacified centrally. Evaluation ofthe osseous structures demonstrates multilevel spondylosis withoutevidence of acute fracture or aggressive osseous lesion. The lung fieldsdemonstrate no evidence of acute infectious process or distinct suspicious focal pulmonary nodularity. CT abdomen pelvis: The body wall soft tissues demonstrate no acutefindings, with right lower quadrant ostomy noted. The osseous structuresdemonstrate multilevel spondylosis change and prior posterior fusion atL4-5. The liver, spleen, pancreas and bilateral adrenal glands appear normal. Unremarkable gallbladder. Thekidneys appear normal. Postoperative changes are again noted from priorcolectomy with right lower quadrant ileostomy. There is no free fluid orovert pneumoperitoneum. Some thickening along the peritoneal margins on the right appears smooth and may reflectevolving postoperative changes and trace layering blood products. There isno new suspicious mesenteric nodularity or retroperitoneallymphadenopathy. The pelvic viscera demonstrate no acute findings. IMPRESSION: Impression: Likely expected evolution of postoperative changes following priorcolectomy as above. No specific evidence of recurrent or metastaticdisease in the chest, abdomen and pelvis. No evidence of obstruction orleak. Electronically Signed: Jesus Alberto Wilburn MD 12/28/2024 6:12 AM EDT Workstation ID: [id number] Nemo Banda MD IMG CT ORDERABLES Final Result * CT Chest With Contrast Diagnostic (12/25/2024 3:34 PM EDT) Anatomical Region Laterality Modality Chest N/A Computed Tomogra phy 12/28/2024 5:58 AM EDT Impressions 12/28/2024 6:12 AM EDT Impression: Likely expected evolution of postoperative changes following prior colectomy as above. No specific evidence of recurrent or metastatic disease in the chest, abdomen and pelvis. No evidence of obstruction or leak. Electronically Signed: Jesus Alberto Wilburn MD 12/28/2024 6:12 AM EDT Workstation ID: [id number] Narrative 12/28/2024 6:[address] ABDOMEN PELVIS W CONTRAST, CT CHEST W CONTRAST DIAGNOSTIC Date of Exam: 12/25/2024 3:17 PM EDT Indication: colon cancer. Comparison: 09/19/2024. 10/14/2024 Technique: Axial CT images were obtained of the abdomen and pelvis following the uneventful intravenous administration of 85 mL Isovue-300. Reconstructed coronal and sagittal images were also obtained. Automated exposure control and iterative construction methods were used. Findings: Chest: There is no pathologic axillary adenopathy or other worrisome body wall soft tissue finding in the chest. There is no pleural or pericardial effusion. There is no pathologic mediastinal adenopathy. Mildly atherosclerotic, nonaneurysmal thoracic aorta. The pulmonary arteries are well-opacified centrally. Evaluation of the osseous structures demonstrates multilevel spondylosis without evidence of acute fracture or aggressive osseous lesion. The lung gonzalez demonstrate no evidence of acute infectious process or distinct suspicious focal pulmonary nodularity. CT abdomen pelvis: The body wall soft tissues demonstrate no acute findings, with right lower quadrant ostomy noted. The osseous structures demonstrate multilevel spondylosis change and prior posterior fusion at L4-5. The liver, spleen, pancreas and bilateral adrenal glands appear normal. Unremarkable gallbladder. The kidneys appear normal. Postoperative changes are again noted from prior colectomy with right lower quadrant ileostomy. There is no free fluid or overt pneumoperitoneum. Some thickening along the peritoneal margins on the right appears smooth and may reflect evolving postoperative changes and trace layering blood products. There is no new suspicious mesenteric nodularity or retroperitoneal lymphadenopathy. The pelvic viscera demonstrate no acute findings. Procedure Note Braulio Wilburn MD - 12/28/2024 CT ABDOMEN PELVIS W CONTRAST, CT CHEST W CONTRAST DIAGNOSTIC Date of Exam: 12/25/2024 3:17 PM EDT Indication: colon cancer. Comparison: 09/19/2024. 10/14/2024 Technique: Axial CT images were obtained of the abdomen and pelvisfollowing the uneventful intravenous administration of 85 mL Isovue-300.Reconstructed coronal and sagittal images were also obtained. Automatedexposure control and iterative construction methods were used. Findings: Chest: There is no pathologic axillary adenopathy or other worrisome bodywall soft tissue finding in the chest. There is no pleural or pericardialeffusion. There is no pathologic mediastinal adenopathy. Mildlyatherosclerotic, nonaneurysmal thoracic aorta. The pulmonary arteries are well-opacified centrally. Evaluation ofthe osseous structures demonstrates multilevel spondylosis withoutevidence of acute fracture or aggressive osseous lesion. The lung fieldsdemonstrate no evidence of acute infectious process or distinct suspicious focal pulmonary nodularity. CT abdomen pelvis: The body wall soft tissues demonstrate no acutefindings, with right lower quadrant ostomy noted. The osseous structuresdemonstrate multilevel spondylosis change and prior posterior fusion atL4-5. The liver, spleen, pancreas and bilateral adrenal glands appear normal. Unremarkable gallbladder. Thekidneys appear normal. Postoperative changes are again noted from priorcolectomy with right lower quadrant ileostomy. There is no free fluid orovert pneumoperitoneum. Some thickening along the peritoneal margins on the right appears smooth and may reflectevolving postoperative changes and trace layering blood products. There isno new suspicious mesenteric nodularity or retroperitoneallymphadenopathy. The pelvic viscera demonstrate no acute findings. IMPRESSION: Impression: Likely expected evolution of postoperative changes following priorcolectomy as above. No specific evidence of recurrent or metastaticdisease in the chest, abdomen and pelvis. No evidence of obstruction orleak. Electronically Signed: Jesus Alberto Wilburn MD 12/28/2024 6:12 AM EDT Workstation ID: [id number] Nemo Banda MD IMG CT ORDERABLES Final Result documented in this encounter Visit Diagnoses Diagnosis Malignant neoplasm of ascending colon documented in this encounter Administered Medications Inactive Administered Medications - up to 3 most recent administrations Medication Order MAR Action Action Date Dose Rate Site barium (READI-CAT 2) suspension 450 mL 450 mL, Oral, Once, On Wed12/25/24 at 1630, For 1 dose, (BK) Shake well before administration. Given 12/25/2024 2:25 PM EDT 450 mL iopamidol (ISOVUE-300) 61 % injection 85 mL 85 mL, Intravenous, Once in Imaging, On Wed12/25/24 at 1630, For 1 dose Given 12/25/2024 3:27 PM EDT 85 mL R ight Arm documented in this encounter Care Teams Stiff Leg Derrick Operator Relationship Specialty Start Date End Date Ham Petit MD [address] [facility] [address] [place] [id number] PCP - General Internal Medicine 04/08/16 documented as of this encounter
--- OUTSIDE RECORDS SUMMARY | 2024-12-25 16:00 | XMS_ITS | Encounter Summary ---
Author Organization [facility] yste Address [address] [place] [address] Care Team Providers Care Skydiving Instructor Name Role Phone Ham Petit MD Primary Care Provider [phone] Encounter Details Date Type Department Care Team (Late st Contact Info) Description 12/25/2024 4:00 PM EDT Lab [facility] [place] [address] [facility] [address] [place] [address] Malignant neoplasm of ascending colon Social History Tobacco Use Types Packs/Day Years Used Date Smoking Tobacco: Never Smokeless Tobacco: Never Alcohol Use Standard Drinks/Week Comments No 0 (1 standard drink = 0.6 oz pur e alcohol) [facility] Utilities Answer Date Recorded In the past 12 months has e electric, gas, oil, or water company threatened to shut off services in your [...] care, and heating? Not very hard 10/12/2024 [facility] [place] of Occupat ional Health - Occupational Stress [...] GED or equivalent No 10/12/2024 Preferred Language Australian 10/12/2024 PHQ-2 Answer Date Recorded Patient Health Questionnaire-2 Score 0 10/12/2024 Comments No Sex and Gender Information Value Date Recorded Sex Assigned at Not on file Legal Sex Female 12:00 PM EDT Gender Identity Not on file Sexual Orientation Not on file documented as of this encounter Plan of Treatment Upcoming Encounters Date Type Department Care Team (Late st Contact Info) Description 02/14/2025 2:30 PM EDT Pre-Admission Testing [facility] PREADMISSION T [address] [place] [address] 02/20/2025 10:32 AM EDT Hospital Encounter [facility] OR [address] [place] [address] Ian Decker MD [address] [place] [address] 02/20/2025 10:32 AM EDT - 02/20/2025 12:24 PM EDT Surgery [facility] OR [address] [place] [address] Ian Decker MD [address] [place] [address] ILEOSTOMY TAKEDOWN 04/12/2025 1:45 PM EST Office Visit [facility] [address] [facility] [address] [place] [phone] Nemo Banda MD [address] [place] [address] 10/04/2025 1:00 PM EDT Office Visit [facility] [address] [facility] [address] [place] [phone] Braulio Choudhary PA [address] [facility] [place] [address] Scheduled Procedures Name Priority Associated Diagnoses Date/Ti me ILEOSTOMY TAKEDOWN 10:32 AM EDT documented as of this encounter Procedures Procedure Name Priority Date/Time Associated Diagnosis Comments CBC WITH AUTO DIFFERENTIAL Routine 12/25/2024 3:28 PM EDT Malignant neoplasm of ascending colon CBC AND DIFFERENTIAL Routine 12/25/2024 3:28 PM EDT Malignant neoplasm of ascending colon CEA Routine 12/25/2024 3:28 PM EDT Malignant neoplasm of ascending colon COMPREHENSIVE METABOLIC PANEL Routine 12/25/2024 3:28 PM EDT Malignant neoplasm of ascending colon documented in this encounter Results * (ABNORMAL) CBC Auto Differential (12/25/2024 3:28 PM EDT) WBC 6.94 3.40 - 10.80 10*3/mm3 12/25/2024 4:34 PM EDT [facility] RBC 5.58(H) 3.77 - 5.28 10*6/mm3 12/25/2024 4:34 PM EDT [facility] Hemoglobin 13.6 12.0 - 15.9 g/dL 12/25/2024 4:34 PM EDT [facility] Hematocrit 44.2 34.0 - 46.6 % 12/25/2024 4:34 PM EDT [facility] MCV 79.2 79.0 - 97.0 fL 12/25/2024 4:34 PM EDT [facility] MCH 24.4(L) 26.6 - 33.0 pg 12/25/2024 4:34 PM EDT [facility] MCHC 30.8(L) 31.5 - 35.7 g/dL 12/25/2024 4:34 PM EDT [facility] RDW 24.3(H) 12.3 - 15.4 % 12/25/2024 4:34 PM EDT [facility] RDW-SD 69.7(H) 37.0 - 54.0 fl 12/25/2024 4:34 PM [facility] MPV 9.8 6.0 - 12.0 fL 12/25/2024 4:34 PM [facility] Platelets 291 140 - 450 10*3/mm3 12/25/2024 4:34 PM [facility] Neutrophil % 73.4 42.7 - 76.0 % 12/25/2024 4:34 PM [facility] Lymphocyte % 17.4(L) 19.6 - 45.3 % 12/25/2024 4:34 PM [facility] Monocyte % 6.8 5.0 - 12.0 % 12/25/2024 4:34 PM [facility] Eosinophil % 1.6 0.3 - 6.2 % 12/25/2024 4:34 PM [facility] Basophil % 0.7 0.0 - 1.5 % 12/25/2024 4:34 PM [facility] Immature Grans % 0.1 0.0 - 0.5 % 12/25/2024 4:34 PM [facility] Neutrophils, Absolute 5.09 1.70 - 7.00 10*3/mm3 12/25/2024 4:34 PM [facility] Lymphocytes, Absolute 1.21 0.70 - 3.10 10*3/mm3 12/25/2024 4:34 PM [facility] Monocytes, Absolute 0.47 0.10 - 0.90 10*3/mm3 12/25/2024 4:34 PM [facility] Eosinophils, Absolute 0.11 0.00 - 0.40 10*3/mm3 12/25/2024 4:34 PM [facility] Basophils, Absolute 0.05 0.00 - 0.20 10*3/mm3 12/25/2024 4:34 PM [facility] Immature Grans, Absolute 0.01 0.00 - 0.05 10*3/mm3 12/25/2024 4:34 PM [facility] Blood Venipuncture / Unknown 12/25/2024 3:28 PM EDT 12/25/2024 3:28 PM EDT us Nemo Banda MD LAB BLOOD ORDERABLES Final Res ult Performing Organization Address City/[facility]/ZIP Co de Phone Number [facility]
[address] [facility] [address] [place] [id number], * CEA (12/25/2024 3:28 PM EDT) CEA 2.91 ng/mL 12/26/2024 12:26 AM EDT [facility] Blood Venipuncture / Unknown 12/25/2024 3:28 PM EDT 12/25/2024 3:28 PM EDT Narrative [facility] - 12/26/2024 12:26 AM EDT CEA Reference Range: Non Smokers: Less than 3 ng/mL Smokers: Less than 5 ng/mL Results may be falsely decreased if patient taking Biotin. Testing Method: [employer] Electrochemiluminescence Immunoassay(ECLIA) Values obtained with different assay methods or kits cannot be used interchangeably. us Nemo Banda MD LAB BLOOD ORDERABLES Final Res ult Performing Organization Address City/[facility] Co de Phone Number [facility]
[address] [place] [address], * (ABNORMAL) Comprehensive Metabolic Panel (12/25/2024 3:28 PM EDT) Glucose 91 65 - 99 mg/dL 12/25/2024 4:47 PM EDT [facility] BUN 14.6 8.0 - 23.0 mg/dL 12/25/2024 4:47 PM EDT [facility] Creatinine 0.65 0.57 - 1.00 mg/dL 12/25/2024 4:47 PM EDT [facility] Sodium 140 136 - 145 mmol/L 12/[facility] Potassium 4.5 3.5 - 5.2 mmol/L 12/25/2024 4:47 PM [facility] Chloride 100 98 - 107 mmol/L 12/25/2024 4:47 PM [facility] CO2 26.3 22.0 - 29.0 mmol/L 12/25/2024 4:47 PM [facility] Calcium 10.8(H) 8.6 - 10.5 mg/dL 12/25/2024 4:47 PM [facility] Total Protein 7.6 6.0 - 8.5 g/dL 12/25/2024 4:47 PM [facility] Albumin 4.5 3.5 - 5.2 g/dL 12/25/2024 4:47 PM [facility] ALT (SGPT) 15 1 - 33 U/L 12/25/2024 4:47 PM [facility] AST (SGOT) 24 1 - 32 U/L 12/25/2024 4:47 PM [facility] Alkaline Phosphatase 96 39 - 117 U/L 12/25/2024 4:47 PM [facility] Total Bilirubin 0.3 0.0 - 1.2 mg/dL 12/25/2024 4:47 PM [facility] Globulin 3.1 gm/dL 12/25/2024 4:47 PM [facility] A/G Ratio 1.5 g/dL 12/25/2024 4:47 PM [facility] BUN/Creatinine Ratio 22.5 7.0 - 25.0 12/25/2024 4:47 PM [facility] Anion Gap 13.7 5.0 - 15.0 mmol/L 12/25/2024 4:47 PM [facility] eGFR 87.5 >60.0 mL/min/1.7 3 12/25/2024 4:47 PM [facility] Blood Venipuncture / Unknown 12/25/2024 3:28 PM EDT 12/25/2024 3:28 PM EDT Narrative [facility] - 12/25/2024 4:47 PM EDT GFR Categories in Chronic Kidney Disease (CKD) GFR Category GFR (mL/min/1.73) Interpretation G1 90 or greater Normal or high (1) G2 60-89 Mild decrease (1) G3a 45-59 Mild to moderate decrease G3b 30-44 Moderate to severe decrease G4 15-29 Severe decrease G5 14 or less Kidney failure (1)In the absence of evidence of kidney disease, neither GFR category G1 or G2 fulfill the criteria for CKD. eGFR calculation 2020 CKD-EPI creatinine equation, which does not include race as a factor us Nemo Banda MD LAB BLOOD ORDERABLES Final Res ult [facility]
[address] [facility] [address] [place] [address], documented in this encounter Visit Diagnoses Diagnosis Malignant neoplasm of ascending colon documented in this encounter Care Teams Skydiving Instructor Relationship Specialty Start Date End Date Ham Petit MD [address] [facility] [address] [place] [address] PCP - General Internal Medicine 04/08/16 documented as of this encounter
--- OUTSIDE RECORDS SUMMARY | 2025-01-04 14:15 | XMS_ITS | Encounter Summary ---
[facility] Address [address] [place] [address] Care Team Providers Care Personal Injury Law Specialist Name Role Phone Ham Petit MD Primary Care Provider [phone] Encounter Details Date Type Department Care Team (Late st Contact Info) Description 01/04/2025 2:15 PM EDT Office Visit [facility] HEMATOLOGY & ONCOLOGY [address] [facility] [address] [place] [address] Nemo Banda MD [address] [facility] [address] [place] [address] Malignant neoplasm of ascending colon (Primary Dx); Idiopathic hypercalcemia Social History Tobacco Use Types Packs/Day Years Used Date Smoking Tobacco: Never Smokeless Tobacco: Never Tobacco Cessation:Counseling Given: Not Answered Alcohol Use Standard Drinks/Week Comments No 0 (1 standard drink = 0.6 oz pur e alcohol) [facility] Utilities Answer Date Recorded In the past 12 months has [email or web address], gas, oil, or water [employer] threatened to shut off services in your [...] Never 10/10/2024 Overall Financial Resource Strain (CARDIA) Tahminae r Date Recorded How hard is it for you to pa y for the very basics like food, housing, medical care, and heating? Not very hard 10/12/2024 [facility] - Occupational Stress Questionnaire Answer Date Recorded [...] GED or equivalent No 10/12/2024 Preferred Language Chinese 10/12/2024 PHQ-2 Answer Date Recorded Patient Health Questionnaire-2 Score 0 10/12/2024 Comments No Sex and Gender Information Value Date Recorded Sex Assigned at Not on file Legal Sex Female 12:00 PM EDT Gender Identity Not on file Sexual Orientation Not on file documented as of this encounter Last Filed Vital Signs Vital Sign Reading Time Taken Comments Blood Pressure 188/81 01/04/2025 2:18 PM EDT Pulse 66 01/04/2025 2:18 PM EDT Temperature 36.3 C (97.3 F) 01/04/2025 2:18 PM EDT Respiratory Rate - - Oxygen Saturation 96% 01/04/2025 2:18 PM EDT Inhaled Oxygen Concentration - - Weight 63 kg (139 lb) 01/04/2025 2:18 PM EDT Height 167.6 cm (5' 5.98 ) 01/04/2025 2:18 PM ED T Body Mass Index 22.45 01/04/2025 2:18 PM EDT documented in this encounter Patient Instructions * Patient Instructions* Nemo Banda MD - 01/04/2025 2:15 PM EDT Have your labs drawn 1 week prio to your follow up documented in this encounter Progress Notes * Nemo Banda MD - 01/04/2025 2:15 PM EDT Images from the original note were not included. Hematology and Oncology [place] Office number [phone] Fax number [phone] Follow up Date: 01/04/2025 Patient Name: Reyna Mcconnell : 1940 Referring Physician: Dr. Ian Decker Chief Complaint: Colon cancer follow up Cancer Staging: Cancer Staging Stage IIA (cT3, cN0, cM0) History of Present Illness: Reyna Mcconnell is a pleasant 84 y.o. 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 Presenting with rectal bleeding and changing bowel habits. She underwent colonoscopy 09/13/2024 with findings of a malignant appearing large mass in the left colon extending from 35 to 43 cm above the dentate line. Vu showed portions of tubular villous adenoma with high-grade dysplasia. Area focally suspicious for invasive carcinoma. Small sessile polyp at 45 cm. Biopsy showed tubular adenoma. CT of the chest abdomen and pelvis 09/19/2024 demonstrated a small sliding-type hiatal hernia. Segmental wall thickening involving the mid transverse colonCT chest abdomen pelvis concerning for primary colonic malignancy. Small adjacent lymph nodes. Small left inguinal hernia. CEA 8.7. She underwent total abdominal colectomy 10/10/2024 with final pathology demonstrating invasive moderately differentiated adenocarcinoma. Margins negative. Tumor size 5.9 cm, pT3 with invasion of the pericolonic tissue. Lymph nodes negative (0/33). MSI testing showed a normal phenotype/low probabilityof MSI high Interval history: She is here for routine follow up. She endorses stable chronic nerve pain. No nausea or abodmianl pain. Stoma output normal.She denies new persistent headaches, bone pain, nausea, dyspnea or cough. Past Medical History: Past Medical History: Diagnosis Date Arthritis right foot Cancer skin Concussion hx of Cyst, dermoid, scalp and neck GERD (gastroesophageal reflux disease) History of transfusion Hypertension PAC (premature atrial contraction) occassional Peripheral vascular disease Piriformis syndrome of right side PONV (postoperative nausea and vomiting) Wears glasses Wears partial dentures upper Superficial thrombosis after varicose vein surgery. Had severe hand swelling on Xarelto. No DVT or PE Past Surgical History: Past Surgical History: Procedure Laterality Date BACK SURGERY 2002 fusion COLON RESECTION N/A 10/10/2024 Procedure: LAPAROSCOPIC ASSISTED TOTAL ABDOMINAL COLECTOMY, ILEAL POUCH TO RECTAL ANASTOMOSIS AND PROTECTING LOOP ILEOSTOMY; Surgeon: Ian Decker MD; Location: [facility]; Service: General; Laterality: N/A; COLONOSCOPY HYSTERECTOMY JOINT REPLACEMENT bilateral hip replacement NEPHRECTOMY Right PAROTID BIOPSY/TUMOR EXCISION Right TONSILLECTOMY TOTAL HIP ARTHROPLASTY REVISION Left 04/22/2016 Procedure: LEFT TOTAL HIP ARTHROPLASTY REVISION ; Surgeon: Inocencio Puga MD; Location: [facility]; Service: 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 Family History: No family history on file. Social History: Social History Socioeconomic History Marital status: Tobacco Use Smoking status: Never Smokeless tobacco: Never Vaping Use Vaping status: Never Used Substance and Sexual Activity Alcohol use: No Drug use: No Sexual activity: Defer Medications: Current Outpatient Medications: amLODIPine (NORVASC) 10 MG tablet, Take 1 tablet by mouth Daily., Disp: , Rfl: amLODIPine (NORVASC) 2.5 MG tablet, Take 1 tablet by mouth Daily., Disp: , Rfl: cholecalciferol (VITAMIN D3) 1000 UNITS tablet, Take 1 tablet by mouth Daily., Disp: , Rfl: gabapentin (NEURONTIN) 100 MG capsule, Take 1 capsule by mouth Daily. (Patient taking differently: Take 1 capsule by mouth As Needed.), Disp: 5 capsule, Rfl: 0 Allergies: Allergies Allergen Reactions Morphine And Codeine Shortness Of Breath Amoxicillin Hives Beta lactam allergy details Antibiotic reaction: hives, rash Age at reaction: adult Dose to reaction time: (!) hours Reason for antibiotic: other Epinephrine required for reaction?: no Tolerated antibiotics: other (clindamycin; neomicin) Rivaroxaban Other (See Comments) Swelling and redness in left hand Azithromycin Swelling Of right hand/wrist Objective Vital Signs: Vitals: 01/04/25 1418 BP: (!) 188/81 Pulse: 66 Temp: 97.3 ??F (36.3 ??C) TempSrc: Infrared SpO2: 96% Weight: 63 kg (139 lb) Height: 167.6 cm (65.98 ) PainSc: 8 Comment: nerve pain Body mass index is 22.45 kg/m??. Pain Score 01/04/25 1418 PainSc: 8 Comment: nerve pain ECOG Performance Status: 1 - Symptomatic but completely ambulatory Physical Exam: General: No acute distress. Well appearing HEENT: Normocephalic, atraumatic. Sclera anicteric. Neck: supple, no adenopathy. Cardiovascular: regular rate and rhythm. No murmurs. Respiratory: Normal rate. Clear to auscultation bilaterally Abdomen: Soft, nontender, non distended with normoactive bowel sounds Lymph: no cervical, supraclavicular adenopathy Neuro: Alert and oriented x 3. No focal deficits. Ext: Symmetric, no swelling. Psych: Euthymic Laboratory/Imaging Reviewed: Lab on 12/25/2024 Component Date Value Ref Range Status Glucose 12/25/2024 91 65 - 99 mg/dL Final BUN 12/25/2024 14.6 8.0 - 23.0 mg/dL Final Creatinine 12/25/2024 0.65 0.57 - 1.00 mg/dL Final Sodium 12/25/2024 140 136 - 145 mmol/L Final Potassium 12/25/2024 4.5 3.5 - 5.2 mmol/L Final Chloride 12/25/2024 100 98 - 107 mmol/L Final CO2 12/25/2024 26.3 22.0 - 29.0 mmol/L Final Calcium 12/25/2024 10.8 (H) 8.6 - 10.5 mg/dL Final Total Protein 12/25/2024 7.6 6.0 - 8.5 g/dL Final Albumin 12/25/2024 4.5 3.5 - 5.2 g/dL Final ALT (SGPT) 12/25/2024 15 1 - 33 U/L Final AST (SGOT) 12/25/2024 24 1 - 32 U/L Final Alkaline Phosphatase 12/25/2024 96 39 - 117 U/L Final Total Bilirubin 12/25/2024 0.3 0.0 - 1.2 mg/dL Final Globulin 12/25/2024 3.1 gm/dL Final A/G Ratio 12/25/2024 1.5 g/dL Final BUN/Creatinine Ratio 12/25/2024 22.5 7.0 - 25.0 Final Anion Gap 12/25/2024 13.7 5.0 - 15.0 mmol/L Final eGFR 12/25/2024 87.5 >60.0 mL/min/1.73 Final CEA 12/25/2024 2.91 ng/mL Final WBC 12/25/2024 6.94 3.40 - 10.80 10*3/mm3 Final RBC 12/25/2024 5.58 (H) 3.77 - 5.28 10*6/mm3 Final Hemoglobin 12/25/2024 13.6 12.0 - 15.9 g/dL Final Hematocrit 12/25/2024 44.2 34.0 - 46.6 % Final MCV 12/25/2024 79.2 79.0 - 97.0 fL Final MCH 12/25/2024 24.4 (L) 26.6 - 33.0 pg Final MCHC 12/25/2024 30.8 (L) 31.5 - 35.7 g/dL Final RDW 12/25/2024 24.3 (H) 12.3 - 15.4 % Final RDW-SD 12/25/2024 69.7 (H) 37.0 - 54.0 fl Final MPV 12/25/2024 9.8 6.0 - 12.0 fL Final Platelets 12/25/2024 291 140 - 450 10*3/mm3 Final Neutrophil % 12/25/2024 73.4 42.7 - 76.0 % Final Lymphocyte % 12/25/2024 17.4 (L) 19.6 - 45.3 % Final Monocyte % 12/25/2024 6.8 5.0 - 12.0 % Final Eosinophil % 12/25/2024 1.6 0.3 - 6.2 % Final Basophil % 12/25/2024 0.7 0.0 - 1.5 % Final Immature Grans % 12/25/2024 0.1 0.0 - 0.5 % Final Neutrophils, Absolute 12/25/2024 5.09 1.70 - 7.00 10*3/mm3 Final Lymphocytes, Absolute 12/25/2024 1.21 0.70 - 3.10 10*3/mm3 Final Monocytes, Absolute 12/25/2024 0.47 0.10 - 0.90 10*3/mm3 Final Eosinophils, Absolute 12/25/2024 0.11 0.00 - 0.40 10*3/mm3 Final Basophils, Absolute 12/25/2024 0.05 0.00 - 0.20 10*3/mm3 Final Immature Grans, Absolute 12/25/2024 0.01 0.00 - 0.05 10*3/mm3 Final CT Chest With Contrast Diagnostic Result Date: 12/28/2024 Narrative: CT ABDOMEN PELVIS W CONTRAST, CT CHEST W CONTRAST DIAGNOSTIC Date of Exam: 12/25/2024 3:17 PM EDT Indication: colon cancer. Comparison: 09/19/2024. 10/14/2024 Technique: Axial CT images were obtained of the abdomen and pelvis following the uneventful intravenous administration of 85 mL Isovue-300. Reconstructed coronal and sagittal images were also obtained. Automated exposure control anditerative construction methods were used. Findings: Chest: There is no pathologic axillary adenopathy or other worrisome body wall soft tissue finding in the chest. There is no pleural or pericardialeffusion. There is no pathologic mediastinal adenopathy. Mildly atherosclerotic, nonaneurysmal thora cic aorta. The pulmonary arteries are well-opacified centrally. [...] The pelvic viscera demonstrate no acute findings. Impression: Impression: Likely expected evolution of postoperative changes following prior colectomy as above. No specific evidence of recurrent or metastatic disease in the chest, abdomen and pelvis. No evidence of obstruction or leak. Electronically Signed: Jesus Alberto Wilburn MD 12/28/2024 6:12 AM EDT Workstation ID: [id number] CT Abdomen Pelvis With Contrast Result Date: 12/28/2024 Narrative: CT ABDOMEN PELVIS W CONTRAST, CT CHEST W CONTRAST DIAGNOSTIC Date of Exam: 12/25/2024 3:17 PM EDT Indication: colon cancer. Comparison: 09/19/2024. 10/14/2024 Technique: Axial CT images were obtained of the abdomen and pelvis following the uneventful intravenous administration of 85 mL Isovue-300. Reconstructed coronal and sagittal images were also obtained. Automated exposure control anditerative construction methods were used. Findings: Chest: There is no pathologic axillary adenopathy or other worrisome body wall soft tissue finding in the chest. There is no pleural or pericardialeffusion. There is no pathologic mediastinal adenopathy. Mildly atherosclerotic, nonaneurysmal thora cic aorta. The pulmonary arteries are well-opacified centrally. [...] The pelvic viscera demonstrate no acute findings. Impression: Impression: Likely expected evolution of postoperative changes following prior colectomy as above. No specific evidence of recurrent or metastatic disease in the chest, abdomen and pelvis. No evidence of obstruction or leak. Electronically Signed: Jesus Alberto Wilburn MD 12/28/2024 6:12 AM EDT Workstation ID: [id number] Procedures Assessment / Plan Assessment/Plan: Stage II colon cancer status post total colectomy - Reviewed her imaging, pathology reports, operative notes outlined in the HPI - She was found to have stage IIB disease. She is status post curative intent surgery - We discussed indications for adjuvant chemotherapy including stage III/lymph node positive disease, or stage II with high risk features such as T4, poorly differentiated, LVI, PNI, bowel obstruction, positive margins, or less than 12 sampled lymph nodes. She has none of these features. Recommended against adjuvant chemotherapy. - I recommended proceeding with standard of care serial observation. -We reviewed her CT C/a/p showing SHAI. CBC/CMP notable for very mild hypercalcemia. CEA wnl Follow up in 3 mo with repeat labs, scans in 6 mo Orders Placed This Encounter Procedures Comprehensive Metabolic Panel CEA Vitamin D 25 Hydroxy PTH, Intact CBC & Differential 2. Mild hypercalcemia -Check repeat CMP, PTH, Vit D on her return -Avoid supplemental calcium Follow Up: 3 mo Nemo Banda MD Hematology and Oncology documented in this encounter Plan of Treatment Upcoming Encounters Date Type Department Care Team (Late st Contact Info) Description 02/14/2025 2:30 PM EDT Pre-Admission Testing [facility] PREADMISSION T [address] [place] [address] 02/20/2025 10:32 AM EDT Hospital Encounter [facility] OR [address] [place] [address] Ian Decker MD [address] [place] [address] 02/20/2025 10:32 AM EDT - 02/20/2025 12:24 PM EDT Surgery [facility] OR [address] [place] [address] Ian Decker MD [address] [place] [address] ILEOSTOMY TAKEDOWN 04/12/2025 1:45 PM EST Office Visit [facility]ATOLOG[facility] & [facility]Y [address] [facility] [address] [place] [phone] Nemo Banda MD [address] [place] [address] 10/04/2025 1:00 PM EDT Office Visit [facility] CARDIOLOGY [address] [facility] [address] [place] [phone] Braulio Choudhary PA [address] [facility] [address] [place] [address] Scheduled Orders Name Type Priority Associated Diagnoses Orde r Schedule CBC & Differential Lab Panel Routine Malignant neoplasm of ascending colon Expected: 01/09/2025 (Approximate), Expires: 04/06/2026 Comprehensive Metabolic Panel Lab Routine Malignant neoplasm of ascending colon Expected: 01/09/2025 (Approximate), Expires: 04/06/2026 CEA Lab Routine Malignant neoplasm of ascending colon Expected: 01/09/2025 (Approximate), Expires: 04/06/2026 Vitamin D 25 Hydroxy Lab Routine Malignant neoplasm of ascending colon Idiopathic hypercalcemia Expected: 01/09/2025 (Approximate), Expires: 04/06/2026 PTH, Intact Lab Routine Malignant neoplasm of ascending colon Expected: 01/09/2025 (Approximate), Expires: 04/06/2026 Scheduled Procedures Name Priority Associated Diagnoses Date/Ti me ILEOSTOMY TAKEDOWN 10:32 AM EDT documented as of this encounter Visit Diagnoses Diagnosis Malignant neoplasm of ascending colon- Primary Idiopathic hypercalcemia Hypercalcemia documented in this encounter Care Teams Personal Injury Law Specialist Relationship Specialty Start Date End Date Hma Petit MD [facility] [address] [facility] [place] [address] PCP - General Internal Medicine 04/08/16 documented as of this encounter
--- OUTSIDE RECORDS SUMMARY | 2025-01-22 11:08 | XMS_ITS | Encounter Summary ---
[facility] Address [address] [place] [address] Care Team Providers Care Cannery Tender Engineer Name Role Phone Ham Petit MD Primary Care Provider [phone] Reason for Referral * Diagnostic Imaging (Routine) - Closed Specialty Diagnoses / Procedures Referred By Contac t Referred To Contact Radiology Diagnoses Malignant neoplasm of colon, unspecified part of colon Procedures FL Barium Enema Water Soluble FL Barium Enema Ian Decker MD [address] [address] Phone: tel: fax: [place] [address] [place] [address] Phone: tel: Referral ID Status Reason Start Date Expiration Date Visits Re quested Visits Authorized [id number] Closed 11/09/2024 02/08/2026 1 1 Reason for Visit * Diagnostic Imaging (Routine) - Closed Specialty Diagnoses / Procedures Referred By Contac t Referred To Contact Radiology Diagnoses Malignant neoplasm of colon, unspecified part of colon Procedures FL Barium Enema Water Soluble FL Barium Enema Ian Decker MD [address] [address] Phone: tel: fax: [place] [address] [place] [address] Phone: tel: Referral ID Status Reason Start Date Expiration Date Visits Re quested Visits Authorized [id number] Closed 11/09/2024 02/08/2026 1 1 Encounter Details Date Type Department Care Team (Latest Contact Info) Description 01/22/2025 11:08 AM EDT - 01/22/2025 11:59 PM EDT Hospital Encounter [facility] XRAY [address] [place] [address] Ian Decker MD [address] [place] [id number] Malignant neoplasm of colon, unspecified part of colon Discharge Disposition: Home or Self Care Social History Tobacco Use Types Packs/Day Years Used Date Smoking Tobacco: Never Smokeless Tobacco: Never Alcohol Use Standard Drinks/Week Comments No 0 (1 standard drink = 0.6 oz pur e alcohol) [facility] Utilities Answer Date Recorded In the past 12 months has e [place], gas, oil, or water [employer] threatened to shut off services in your [...] care, and heating? Not very hard 10/12/2024 [facility] [place] of Occupat ional Health - Occupational Stress [...] GED or equivalent No 10/12/2024 Preferred Language Moldovan 10/12/2024 PHQ-2 Answer Date Recorded Patient Health [...] Description 02/14/2025 2:30 PM EDT Pre-Admission Testing [facility] PREADMISS[facility] T [address] [place] [address] 02/20/2025 10:32 AM EDT Hospital Encounter [facility] OR [address] [place] [address] Ian Decker MD [address] [place] [id number] 02/20/2025 10:32 AM EDT - 02/20/2025 12:24 PM EDT Surgery [facility] OR [address] [place] [address] Ian Decker MD [address] [place] [address] ILEOSTOMY TAKEDOWN 04/12/2025 1:45 PM EST Office Visit [facility] HEMATOLOGY & ONCOLOGY [address] [facility] [address] [place] [phone] Nemo Banda MD [address] [place] [address] 10/04/2025 1:00 PM EDT Office Visit [facility] CARDIOLOGY [address] [facility] [address] [place] [phone] Braulio Choudhary PA [address] [facility] [address] [place] [address] Scheduled Procedures Name Priority Associated Diagnoses Date/Ti me ILEOSTOMY TAKEDOWN 10:32 AM EDT documented as of this encounter Procedures Procedure Name Priority Date/Time Associated Diagnosis Comments FL BARIUM ENEMA WATER SOLUBLE SINGLE CONTRAST Routine 01/22/2025 12:15 PM EDT Malignant neoplasm of colon, unspecified part of colon documented in this encounter Results * FL Barium Enema Water Soluble Single Contrast (01/22/2025 12:15 PM EDT) Anatomical Region Laterality Modality Body N/A Radio Fluoroscop y 01/22/2025 12:4 1 PM EDT Impressions 01/22/2025 5:41 PM EDT Impression: Status post subtotal colectomy. The ileal rectal anastomosis appears to be intact, and there was no evidence of extraluminal contrast. No postoperative strictures were seen. Report dictated by: Celia Richardson PA-c I have personally reviewed this case and agree with the findings above: Electronically Signed: Otto Gonsalez MD 01/22/2025 5:41 PM EDT Workstation ID: [id number] Narrative 01/22/2025 5:41 PM EDT FL BARIUM ENEMA WATER SOLUBLE SINGLE CONTRAST Date of Exam: 01/22/2025 11:00 AM EDT Indication: C18.9. Comparison: None available. Technique: Float Phlebotomist imaging of the abdomen was obtained. The enema tip was carefully placed in the rectum without difficulty. A single contrast study using water-soluble contrast was performed. The colon was filled in a retrograde fashion. Overhead and fluoroscopic digital spot films were obtained. Fluoroscopic Time: 54 seconds Number of Images: 13 associated fluoroscopic series were saved Findings: Contrast was seen refluxing the small bowel, and the patient's ileostomy device. The colon demonstrates postoperative changes that are consistent with a subtotal colectomy. The ileocolonic anastomosis appeared to be intact, and no extravasation of contrast was seen. No postoperative strictures were seen. Normal evacuation of contrast was noted. Procedure Note Otto Gonsalez MD - 01/22/2025 FL BARIUM ENEMA WATER SOLUBLE SINGLE CONTRAST Date of Exam: 01/22/2025 11:00 AM EDT Indication: C18.9. Comparison: None available. Technique: Float Phlebotomist imaging of the abdomen was obtained. The enema tip wascarefully placed in the rectum without difficulty. A single contrast studyusing water- soluble contrast was performed. The colon was filled in aretrograde fashion. Overhead and fluoroscopic digital spot films were obtained. Fluoroscopic Time: 54 seconds Number of Images: 13 associated fluoroscopic series were saved Findings: Contrast was seen refluxing the small bowel, and the patient's ileostomydevice. The colon demonstrates postoperative changes that are consistentwith a subtotal colectomy. The ileocolonic anastomosis appeared to beintact, and no extravasation of contrast was seen. No postoperative strictures were seen. Normalevacuation of contrast was noted. IMPRESSION: Impression: Status post subtotal colectomy. The ileal rectal anastomosis appears to beintact, and there was no evidence of extraluminal contrast. Nopostoperative strictures were seen. Report dictated by: Celia Richardson PA-c I have personally reviewed this case and agree with the findings above: Electronically Signed: Otto Gonsalez MD 01/22/2025 5:41 PM EDT Workstation ID: [id number] Ian Decker MD IM FLUOROSCOPY ORDERABLES Debora l Result documented in this encounter Visit Diagnoses Diagnosis Malignant neoplasm of colon, unspecified part of colon documented in this encounter Administered Medications Inactive Administered Medications - up to 3 most recent administrations Medication Order MAR Action Action Date Dose Rate Site diatrizoate meglumine-sodium (GASTROGRAFIN) 66-10 % oral solution 480 mL 480 mL, Rectal, Once in Imaging, On 01/22/25 at 1200, For 1 dose, For GI indication: Nurse to Administer undiluted For radiology indication: Administer per local procedures per radiology exam, Indications: RadiographyIndications:Radiograph y Given 01/22/2025 11:58 AM EDT 480 mL documented in this encounter Care Teams Cannery Tender Engineer Relationship Specialty Start Date End Date Ham Petit MD [address] [facility] [address] [address] [place] [address] PCP - General Internal Medicine 04/08/16 documented as of this encounter
[2025-02-01 14:08] LABS: Hematocrit 45.5 % (37.0-47.0); Hemoglobin 14.0 g/dL (12.2-16.2); Immature Granulocytes % 0.4 %; Mean Corpuscular HGB Conc 30.8 g/dL (31.8-35.4); Mean Corpuscular Hemoglobin 26.3 pg (27.0-31.2); Mean Corpuscular Volume 85.5 fl (81-99); Nucleated Red Blood Cells % 0 %; Platelet Count 279 K/mm3 (142-424); Red Blood Count 5.32 M/mm3 (4.20-5.40); Red Cell Distribution Width-SD 62.5 fL; White Blood Count 5.4 K/mm3 (4.8-10.8)
[2025-02-01 14:31] LABS: Albumin Level 4.4 g/dl (3.5-5.0); Chloride 105 mmol/L (98-107); Sodium 139 mmol/L (136-145)
[2025-02-01 14:32] LABS: Potassium 4.7 mmoL/L (3.5-5.1)
[2025-02-01 14:34] LABS: Alanine Aminotransferase 15 U/L (12-78); Albumin/Globulin Ratio 1.8 (1.1-1.8); Anion Gap 11.7 mEq/L (5-15); Aspartate Amino Transferase 29 U/L (14-36); Blood Urea Nitrogen 15 mg/dl (7-17); Carbon Dioxide 27 mmol/L (22.0-30.0); Creatinine,Serum 0.70 mg/dl (0.52-1.04); Estimated Glomerular Filt Rate 80 ml/min (>60); GFR (African American) 97 ML/MIN (>60); Globulin 2.5 g/dL (1.3-3.2); Total Protein,Serum 6.9 g/dl (6.3-8.2)
[2025-02-01 14:35] LABS: Alkaline Phosphatase 79 U/L (38-126); Bilirubin,Total 0.3 mg/dl (0.2-1.3); Calcium 9.9 mg/dl (8.4-10.2); Cholesterol 256 mg/dl (140-200); Glucose 87 mg/dl (74-100); HDL Cholesterol 76 mg/dl (40-60); Triglycerides 116 mg/dl (30-150)
[2025-02-01 15:26] LABS: Vitamin B12 357 pg/mL (239-931)
--- OUTSIDE RECORDS SUMMARY | 2025-02-02 12:50 | XMS_ITS | Encounter Summary ---
Author Organization [facility] Address [address] [place] [address] Care Team Providers Care Field Care Manager Name Role Phone Ham Petit MD Primary Care Provider [phone] Encounter Details Date Type Department Care Team (Latest Contact Info) Description 12/25/2024 Travel Social History Tobacco Use Types Packs/Day Years Used Date Smoking Tobacco: Never Smokeless Tobacco: Never Alcohol Use Standard Drinks/Week Comments No 0 (1 standard drink = 0.6 oz pur e alcohol) [facility] Utilities Answer Date Recorded In the past 12 months has [employer] electric, gas, oil, or water [employer] threatened to shut off services in your [...] care, and heating? Not very hard 10/12/2024 [facility] [place] of Occupat ional Health - Occupational Stress [...] GED or equivalent No 10/12/2024 Preferred Language Kinyarwanda 10/12/2024 PHQ-2 Answer Date Recorded Patient Health [...] Description 02/14/2025 2:30 PM EDT Pre-Admission Testing [facility] PREAD[facility] T [address] [place] [address] 02/20/2025 10:32 AM EDT Hospital Encounter [facility] OR [address] [place] [address] Ian Decker MD [address] [place] [address] 02/20/2025 10:32 AM EDT - 02/20/2025 12:24 PM EDT Surgery [facility] OR [address] [place] [address] Ian Decker MD [address] [place] [address] ILEOSTOMY TAKEDOWN 04/12/2025 1:45 PM EST Office Visit [facility] HEMATOLOGY & ONCOLOGY [address] [facility] [address] [place] [address] Nemo Banda MD [address] [place] [address] 10/04/2025 1:00 PM EDT Office [facility] CARDIOLOGY [address] [facility] [address] [place] [address] Braulio Choudhary PA [address] [facility] [address] [address] [place] [address] Scheduled Procedures Name Priority Associated Diagnoses Date/Ti me ILEOSTOMY TAKEDOWN 09/16/202 5 10:32 AM EDT documented as of this encounter Visit Diagnoses Not on filedocumented in this encounter Care Teams Field Care Manager Relationship Specialty Start Date End Date Ham Petit MD [address] [facility] [address] [facility] [place] [address] PCP - General Internal Medicine 04/08/16 documented as of this encounter
--- OUTSIDE RECORDS SUMMARY | 2025-02-02 12:51 | XMS_ITS | Encounter Summary ---
Author Organization [facility] Address [address] [place] [address] Care Team Providers Care Media Services Director Name Role Phone Ham Petit MD Primary Care Provider [phone] Encounter Details Date Type Department Care Team (Late st Contact Info) Description 01/05/2025 Telephone [facility] WOUND OSTOMY CONTINENCE NURSE [facility] [place] [place] [address] Dae Garcia, LOLA Social History Tobacco Use Types Packs/Day Years [...] care, and heating? Not very hard 10/12/2024 [facility] [place] of Occupat ional Health - Occupational Stress [...] GED or equivalent No 10/12/2024 Preferred Language Jordanian 10/12/2024 PHQ-2 Answer Date Recorded Patient Health Questionnaire-2 Score 0 10/12/2024 Comments No Sex and Gender Information Value Date Recorded Sex Assigned at Not on file Legal Sex Female 12:00 PM EDT Gender Identity Not on file Sexual Orientation Not on file documented as of this encounter Miscellaneous Notes * Telephone Encounter - Dae Garcia RN - 01/05/2025 3:41 PM EDT Reyna Mcconnell 1940 [phone] Summary: Received call from patient and patient's regarding issues with appliance leakage as of recent. We discussed current appliance change process and type of appliance use. Patient currently using 2 piece flat Nestor with stoma paste. Because of her ileostomy I recommended using the convex waferthat the patient also has at home. Reviewed instruction on how to use stoma powder and barrier spray to treat peristomal skin breakdown if indicated. Requested patient to contact me on Wednesday to determine if changing to the convex wafer resolved their issues. Water intake encouraged as patient has been having very thick stool from her ostomy. Time spent teleconferencing with patient's spouse was: 30 minutes documented in this encounter Plan of Treatment Upcoming Encounters Date Type Department Care Team (Late st Contact Info) Description 02/14/2025 2:30 PM EDT Pre-Admission Testing [facility] PREADMISSION T [address] [place] [address] 02/20/2025 10:32 AM EDT Hospital Encounter [facility] OR [address] [place] [address] Ian Decker MD [address] [place] [address] 02/20/2025 10:32 AM EDT - 02/20/2025 12:24 PM EDT Surgery [facility] OR [address] [place] [phone] Ian Decker MD [address] [place] [address] ILEOSTOMY TAKEDOWN 04/12/2025 1:45 PM EST Office Visit [facility] HEM[facility]OLOGY & ONCOLOGY [address] [place] [address] Nemo Banda MD [address] [place] [address] 10/04/2025 1:00 PM EDT Office Visit [facility] CARDIOLOGY [address] [facility] [address] [place] [phone] Braulio Choudhary PA [address] [facility] [address] [place], [place] [phone] Scheduled Procedures Name Priority Associated Diagnoses Date/Ti me ILEOSTOMY TAKEDOWN 10:32 AM EDT documented as of this encounter Visit Diagnoses Not on filedocumented in this encounter Care Teams Media Services Director Relationship Specialty Start Date End Date Ham Petit MD [address] [facility] [address] [place] [address] PCP - General Internal Medicine 04/08/16 documented as of this encounter
--- OUTSIDE RECORDS SUMMARY | 2025-02-02 12:51 | XMS_ITS | Clinical Summary ---
Author Organization [facility] Address [address] [place] [address] Care Team Providers Care Print Graphic Designer Name Role Phone Ham Petit MD Primary Care Provider Allergies Active Allergy Reactions Criticality Noted Date Comments Amoxicillin Hives Medium 10/05/2024 Beta lactam allergy details Antibiotic reaction: hives, rash Age at reaction: adult Dose to reaction time: (!) hours Reason for antibiotic: other Epinephrine required for reaction?: no Tolerated antibiotics: other (clindamycin; neomicin) Azithromycin Swelling Low 10/05/2024 Of right hand/wrist Morphine And Codeine Shortness Of Breath High 2015 Rivaroxaban Other (See Comments) 09/25/2024 Swelling and redness in left hand Medications cholecalciferol (VITAMIN D3) 1000 UNITS tablet Take 1 tablet by mouth Daily. Active amLODIPine (NORVASC) 10 MG tablet Take 1 tablet by mouth Daily. Active gabapentin (NEURONTIN) 100 MG capsuleIndicati ons:S/P colectomy Take 1 capsule by mouth Daily. 5 capsule 5 Active Additional Information Patient taking differently:100 mg OralAs Needed, Reported on 11/01/2024 amLODIPine (NORVASC) 2.5 MG tablet Take 1 tablet by mouth Daily. Active Active Problems Problem Noted Date Diagnosed Date Malignant neoplasm of ascending colon 11/01/2024 Cancer Staging:Clinical:Stage IIA(cT3, cN0, cM0) - Signed by Nemo Banda MD on 11/01/2024 Colon neoplasm 10/10/2024 GERD (gastroesophageal reflux disease) PVD (peripheral vascular disease) 10/10/2024 S/P colectomy ( Lap assisted total abdominal colectomy, ileal pouch to high rectal anastomosis, protecting loop ileostomy) 10/10/2024 Overview (10/10/2024): LAPAROSCOPIC ASSISTED TOTAL ABDOMINAL COLECTOMY ILEAL POUCH TO HIGH RECTAL ANASTOMOSIS PROTECTING LOOP ILEOSTOMY Anemia 10/10/2024 Palpitations 10/04/2024 Primary hypertension 10/04/2024 Hypertensive urgency 02/10/2023 Coughing 02/10/2023 Painful hip 04/22/2016 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 liner exchange to ceramic on polyethylene 04/22/2016 Acute post-operative pain 04/22/2016 Encounters Date Type Department Care Team Description 01/22/2025 11:08 AM EDT - 01/22/2025 11:59 PM EDT Hospital Encounter [facility] XRAY [address] [place] [phone] Ian Decker MD Malignant neoplasm of colon, unspecified part of colon Discharge Disposition: Home or Self Care 01/22/2025 Travel 01/05/2025 Telephone [facility] WOUND OSTOMY CONTINENCE NURSE [address] [place] [address] Dae Jay RN 01/04/2025 2:15 PM EDT Office Visit [facility] HEMATOLOGY & ONCOLOGY [address] [facility] [address] [place] [address] Nemo Banda MD Malignant neoplasm of ascending colon (Primary Dx); Idiopathic hypercalcemia 01/04/2025 Travel 12/25/2024 4:00 PM EDT Lab [facility] [place] [address] [facility] [address] [place] [address] Malignant neoplasm of ascending colon 12/25/2024 2:21 PM EDT - 12/25/2024 11:59 PM EDT Hospital Encounter [facility] CT [place] [address] [facility] [address] [place] [address] Malignant neoplasm of ascending colon Discharge Disposition: Home or Self Care 12/25/2024 Travel from Last 3 Months Social History Tobacco Use Types Packs/Day Years Used Date Smoking Tobacco: Never Smokeless Tobacco: Never Tobacco Cessation:Counseling Given: Not Answered Alcohol Use Standard Drinks/Week Comments No 0 (1 standard drink = 0.6 oz pur e alcohol) [facility] Utilities Answer Date Recorded In the past 12 months has th e electric, gas, oil, or water company [...] care, and heating? Not very hard 10/12/2024 [facility] Occupat ional Health - Occupational Stress [...] GED or equivalent No 10/12/2024 Preferred Language Kyrgyz 10/12/2024 PHQ-2 Answer Date Recorded Patient Health Questionnaire-2 Score 0 10/12/2024 Comments No Sex and Gender Information Value Date Recorded Sex Assigned at Not on file Legal Sex Female 12:00 PM EDT Gender Identity Not on file Sexual Orientation Not on file Last Filed Vital Signs Vital Sign Reading Time Taken Comments Blood Pressure 188/81 01/04/2025 2:18 PM EDT Pulse 66 01/04/2025 2:18 PM EDT Temperature 36.3 C (97.3 F) 01/04/2025 2:18 PM EDT Respiratory Rate 16 10/18/2024 8:09 AM EDT Oxygen Saturation 96% 01/04/2025 2:18 PM EDT Inhaled Oxygen Concentration - - Weight 63 kg (139 lb) 01/04/2025 2:18 PM EDT Height 167.6 cm (5' 5.98 ) 01/04/2025 2:18 PM ED T Body Mass Index 22.45 01/04/2025 2:18 PM EDT Plan of Treatment Upcoming Encounters Date Type Department Care Team (Late st Contact Info) Description 02/14/2025 2:30 PM EDT Pre-Admission Testing [facility] PREADMISSION T [address] [place] [address] 02/20/2025 10:32 AM EDT Hospital Encounter [facility] OR [address] [place] [phone] Ian Decker MD [address] [place] [id number] 02/20/2025 10:32 AM EDT - 02/20/2025 12:24 PM EDT Surgery [facility] OR [address] [place] [address] Ian Decker MD [address] [place] [id number] ILEOSTOMY TAKEDOWN 04/12/2025 1:45 PM EST Office Visit [facility] HEMATOLOGY & ONCOLOGY [address] [facility] [address] [place] [phone] Nemo Banda MD [address] [place] [address] 10/04/2025 1:00 PM EDT Office Visit [facility] CARDIOLOGY [address] [facility] [address] [place] [address] Braulio Choudhary PA [address] [facility] [address] [place] [address] Scheduled Procedures Name Priority Associated Diagnoses Date/Ti me ILEOSTOMY TAKEDOWN 10:32 AM EDT Health Maintenance Due Date Last Done Comments DXA SCAN 1940 TDAP/TD VACCINES (1 - Tdap) 1960 Pneumococcal Vaccine 50+ (1 of 1 - PCV) 1991 ZOSTER VACCINE (1 of 2) 1991 RSV Vaccine - Adults (1 - 1- dose 75+ series) 2016 COVID-19 Vaccine ( season) 2024 05/19/2021, 10/10/2020, 09/12/2020 ANNUAL WELLNESS VISIT 10/04/2024 INFLUENZA VACCINE 03/07/2025 04/18/2021, 02/05/2019 Medical Devices Implanted Type Area Systems Project Manager Device Identifier Shelf Expiration Date Model / Serial / Lot Hd Fem Bioloxdelta/Ts Ceram 05/20 36mm Pls1.5 - [id number] Implanted:Qty: 1 on 04/22/2016 by Inocencio Puga MD at [facility] Implant DEPUY [id number] / / [id number] Scrw Canc Pinn 6.5x25mm - [id number] Implanted:Qty: 1 on 04/22/2016 by Inocencio Puga MD at [facility] Implant DEPUY [id number] / / [id number] Stplr Lnr Cut Prox 75mm Anatoliy Tlc75 - [id number] Implanted:Qty: 1 on 10/10/2024 by Ian Decker MD at [facility] Implant N/A: Abdomen ETHICON ENDO SURGERY DIV OF J AND J 07/07/2029 [id number] / / [id number] Reload Stplr Lnr Cut Prox 75mm Anatoliy Tcr75 - [id number] Implanted:Qty: 2 on 10/10/2024 by Ian Decker MD at [facility] Implant N/A: Abdomen ETHICON ENDO SURGERY DIV OF J AND J 07/07/2029 TCR75 / / [id number] Reload Modjeska Endopath Gst 45mm Wht - [id number] Implanted:Qty: 2 on 10/10/2024 by Ian Decker MD at [facility] Implant N/A: Abdomen ETHICON DIV OF J AND J 01/04/2027 [id number] / / [id number] Reload Modjeska Endopath Gst 45mm Wht - [id number] Implanted:Qty: 1 on 10/10/2024 by Ian Decker MD at [facility] Implant N/A: Abdomen ETHICON DIV OF AND J 07/07/2026 [id number] / / [id number] Reload Modjeska Flex Gst 45mm Grn - [id number] Implanted:Qty: 1 on 10/10/2024 by Ian Decker MD at [facility] Implant N/A: Abdomen ETHICON DIV OF AND J 04/06/2026 [id number] / / [id number] Reload Modjeska Flex Gst 45mm Grn - [id number] Implanted:Qty: 1 on 10/10/2024 by Ian Decker MD at [facility] Implant N/A: Abdomen ETHICON DIV OF AND J 01/04/2026 [id number] / / [id number] Stplr Pwr Echeloncircular Crv 3d Preld 29mm - [id number] Implanted:Qty: 1 on 10/10/2024 by Ian Decker MD at [facility] Implant N/A: Abdomen ETHICON ENDO SURGERY DIV OF AND J 09/05/2027 [id number] / / [id number] Explanted Type Area Systems Project Manager Device Identifier Shelf Expiration Date Model / Serial / Lot Liner Acet Altrx Facechg 10d 52x36 Pls4 - [id number] Implanted:Qty: 1 Explanted:Qty: 1 on 04/22/2016 at [facility] Implant DEPUY [id number] / / [id number] Liner Acet Altrx Pinn Ntrl 37f71ka - [id number] Implanted:Qty: 1 Explanted:Qty: 1 on 04/22/2016 at [facility] Implant DEPUY [id number] / / [id number] Procedures Procedure Name Priority Date/Time Associated Diagnosis Comments FL BARIUM ENEMA WATER SOLUBLE SINGLE CONTRAST Routine 01/22/2025 12:15 PM EDT Malignant neoplasm of colon, unspecified part of colon CT ABDOMEN PELVIS W CONTRAST Routine 12/25/2024 3:34 PM EDT Malignant neoplasm of ascending colon CT CHEST W CONTRAST Routine 12/25/2024 3 :34 PM EDT Malignant neoplasm of ascending colon CBC AND DIFFERENTIAL Routine 12/25/2024 3:28 PM EDT Malignant neoplasm of ascending colon CBC WITH AUTO DIFFERENTIAL Routine 12/25/2024 3:28 PM EDT Malignant neoplasm of ascending colon CEA Routine 12/25/2024 3:28 PM EDT Malignant neoplasm of ascending colon COMPREHENSIVE METABOLIC PANEL Routine 12/25/2024 3:28 PM EDT Malignant neoplasm of ascending colon from Last 3 Months Results * FL Barium Enema Water Soluble [...] MD 01/22/2025 5:41 PM EDT Workstation ID: [id number] Narrative 01/22/2025 5:41 PM EDT FL BARIUM ENEMA WATER SOLUBLE SINGLE CONTRAST Date of Exam: 01/22/2025 11:00 AM EDT Indication: C18.9. Comparison: None available. Technique: Cdl Dedicated Truck Driver imaging of the abdomen was obtained. The [...] EDT Indication: C18.9. Comparison: None available. Technique: Cdl Dedicated Truck Driver imaging of the abdomen was obtained. The [...] MD 01/22/2025 5:41 PM EDT Workstation ID: [id number] us Ian Decker MD IMG FLUOROSCOPY ORDERABLES Debora shad Result * CT Abdomen Pelvis With Contrast (12/25/2024 [...] MD 12/28/2024 6:12 AM EDT Workstation ID: [id number] Narrative 12/28/2024 6:[address] ABDOMEN [...] MD 12/28/2024 6:12 AM EDT Workstation ID: [id number] Nemo Banda MD IMG CT ORDERABLES Final [...] MD 12/28/2024 6:12 AM EDT Workstation ID: [id number] Narrative 12/28/2024 6:[address] ABDOMEN [...] MD 12/28/2024 6:12 AM EDT Workstation ID: [id number] Nemo Banda MD [facility] [place] ORDERABLES Final Result * (ABNORMAL) CBC Auto Differential (12/25/2024 3:28 PM EDT) WBC 6.94 3.40 - 10.80 10*3/mm3 12/25/2024 4:34 PM EDT [facility] RBC 5.58(H) 3.77 - 5.28 10*6/mm3 12/25/2024 4:34 PM EDT [facility] Hemoglobin 13.6 12.0 - 15.9 g/dL 12/25/2024 4:34 PM EDT [facility] Hematocrit 44.2 34.0 - 46.6 % 12/25/2024 4:34 PM [facility] MCV 79.2 79.0 - 97.0 fL 12/25/2024 4:34 PM [facility] MCH 24.4(L) 26.6 - 33.0 pg 12/25/2024 4:34 PM [facility] MCHC 30.8(L) 31.5 - 35.7 g/dL 12/25/2024 4:34 PM [facility] RDW 24.3(H) 12.3 - 15.4 % 12/25/2024 4:34 PM [facility] RDW-SD 69.7(H) 37.0 - 54.0 fl 12/25/2024 4:34 PM [facility] MPV 9.8 6.0 - 12.0 fL 12/25/2024 4:34 PM [facility] Platelets 291 140 - 450 10*3/mm3 12/25/2024 4:34 PM [facility] Neutrophil % 73.4 42.7 - 76.0 % 12/25/2024 4:34 PM [facility] Lymphocyte % 17.4(L) 19.6 - 45.3 % 12/25/2024 4:34 PM [facility] Monocyte % 6.8 5.0 - 12.0 % 12/25/2024 4:34 PM [facility] Eosinophil % 1.6 0.3 - 6.2 % 12/25/2024 4:34 PM [facility] Basophil % 0.7 0.0 - 1.5 % 12/25/2024 4:34 PM [facility] Immature Grans % 0.1 0.0 - 0.5 % 12/25/2024 4:34 PM [facility] Neutrophils, Absolute 5.09 1.70 - 7.00 10*3/mm3 12/25/2024 4:34 PM [facility] Lymphocytes, Absolute 1.21 0.70 - 3.10 10*3/mm3 12/25/2024 4:34 PM EDT [facility] Monocytes, Absolute 0.47 0.10 - 0.90 10*3/mm3 12/25/2024 4:34 PM EDT [facility] Eosinophils, Absolute 0.11 0.00 - 0.40 10*3/mm3 12/25/2024 4:34 PM EDT [facility] Basophils, Absolute 0.05 0.00 - 0.20 10*3/mm3 12/25/2024 4:34 PM EDT [facility] Immature Grans, Absolute 0.01 0.00 - 0.05 10*3/mm3 12/25/2024 4:34 PM EDT [facility] Blood Venipuncture / Unknown 12/25/2024 3:28 PM EDT 12/25/2024 3:28 PM EDT us Nemo Banda MD LAB BLOOD ORDERABLES Final Res ult [facility]
[address] [address], [place] * CEA (12/25/2024 3:28 PM EDT) CEA 2.91 ng/mL 12/26/2024 12:26 AM EDT [facility] Blood Venipuncture / Unknown 12/25/2024 3:28 PM EDT 12/25/2024 3:28 PM EDT Narrative [facility] - 12/26/2024 12:26 AM EDT CEA Reference Range: Non Smokers: Less than 3 ng/mL Smokers: Less than 5 ng/mL Results may be falsely decreased if patient taking Biotin. Testing Method: [employer] Electrochemiluminescence Immunoassay(ECLIA) Values obtained with different assay methods or kits cannot be used interchangeably. us Nemo Banda MD LAB BLOOD ORDERABLES Final Res ult [facility]
[address] [place] [address], * (ABNORMAL) Comprehensive Metabolic Panel (12/25/2024 3:28 PM EDT) Glucose 91 65 - 99 mg/dL 12/25/2024 4:47 PM T [facility] BUN 14.6 8.0 - 23.0 mg/dL 12/25/2024 4:47 PM T [facility] Creatinine 0.65 0.57 - 1.00 mg/dL 12/25/2024 4:47 PM EDT [facility] Sodium 140 136 - 145 mmol/L 12/25/2024 4:47 PM [facility] Potassium 4.5 3.5 - 5.2 mmol/L 12/25/2024 4:47 PM T [facility] Chloride 100 98 - 107 mmol/L 12/25/2024 4:47 PM [facility] CO2 26.3 22.0 - 29.0 mmol/L 12/25/2024 4:47 PM [facility] Calcium 10.8(H) 8.6 - 10.5 mg/dL 12/25/2024 4:47 PM [facility] Total Protein 7.6 6.0 - 8.5 g/dL 12/25/2024 4:47 PM [facility] Albumin 4.5 3.5 - 5.2 g/dL 12/25/2024 4:47 PM [facility] ALT (SGPT) 15 1 - 33 U/L 12/25/2024 4:47 PM [facility] AST (SGOT) 24 1 - 32 U/L 12/25/2024 4:47 PM [facility] Alkaline Phosphatase 96 39 - 117 U/L 12/25/2024 4:47 PM [facility] Total Bilirubin 0.3 0.0 - 1.2 mg/dL 12/25/2024 4:47 PM [facility] Globulin 3.1 gm/dL 12/25/2024 4:47 PM [facility] A/G Ratio 1.5 g/dL 12/25/2024 4:47 PM EDT [facility] BUN/Creatinine Ratio 22.5 7.0 - 25.0 12/25/2024 4:47 PM EDT [facility] Anion Gap 13.7 5.0 - 15.0 mmol/L 12/25/2024 4:47 PM EDT [facility] eGFR 87.5 >60.0 mL/min/1.7 3 12/25/2024 4:47 PM EDT [facility] Blood Venipuncture / Unknown 12/25/2024 3:28 PM EDT 12/25/2024 3:28 PM EDT Narrative [facility] - 12/25/2024 4:47 PM EDT [...] MD LAB BLOOD ORDERABLES Final Res ult [facility]
[address] [place] [address], from Last 3 Months Insurance MEDICARE A & B [facility] Advance Directives Documents on File Type Date Recorded Patient Advertising Assistant Manager Expl anation LIVING WILL - SCAN 10/05/2024 9:27 AM NEW L IVING WILL LIVING WILL - SCAN 02/23/2022 12:45 PM NO LONGER VALID * CPR (Attempt to Resuscitate) (Latest Code Status on File) Date Activated Date Inactivated Comments 10/10/2024 2:14 PM 10/18/2024 8:11 PM Question Answer Comments Code Status (Patient has no pulse and is not breathing): CPR (Attempt to Resuscitate) Medical Interventions (Patie nt has pulse or is breathing): Full Level Of Support Discussed With: Patient * CPR (Attempt to Resuscitate) Date Activated Date Inactivated Comments 02/10/2023 5:23 AM 02/10/2023 5:54 PM Question Answer Comments Code Status (Patient has no pulse and is not breathing): CPR (Attempt to Resuscitate) Medical Interventions (Patie nt has pulse or is breathing): Full Support Level Of Support Discussed With: Patient * Full Code Date Activated Date Inactivated Comments 04/22/2016 5:52 PM 04/24/2016 4:36 PM Care Teams Print Graphic Designer Relationship Specialty Start Date End Date Ham Petit MD [address] [facility] [address] [place] [address] PCP - General Internal Medicine 04/08/16
--- OUTSIDE RECORDS SUMMARY | 2025-02-02 12:51 | XMS_ITS | Encounter Summary ---
Author Organization [facility] Address [address] [place] [address] Care Team Providers Care Back Seam Stitcher Name Role Phone Ham Petit MD Primary Care Provider [phone] Encounter Details Date Type Department Care Team (Latest Contact Info) Description 01/04/2025 Travel Social History Tobacco Use Types Packs/Day Years Used Date Smoking Tobacco: Never Smokeless Tobacco: Never Alcohol Use Standard Drinks/Week Comments No 0 (1 standard drink = 0.6 oz pur e alcohol) [facility] Utilities Answer Date Recorded In the past 12 months has [employer] electric, gas, oil, or water [employer] threatened to shut off services in your [...] care, and heating? Not very hard 10/12/2024 [facility] [place] of Occupat ional Health - Occupational Stress [...] GED or equivalent No 10/12/2024 Preferred Language Turkish 10/12/2024 PHQ-2 Answer Date Recorded Patient Health [...] Description 02/14/2025 2:30 PM EDT Pre-Admission Testing [facility] PREADMISSION T [address] [place] [address] 02/20/2025 10:32 AM EDT Hospital Encounter [facility] OR [address] [place] [address] Ian Decker MD [address] [place] [address] 02/20/2025 10:32 AM EDT - 02/20/2025 12:24 PM EDT Surgery [facility] OR [address] [place] [address] Ian Decker MD [address] [place] [address] ILEOSTOMY TAKEDOWN 04/12/2025 1:45 PM EST Office Visit [facility] HEMATOLOGY & ONCOLOGY [address] [facility] [address] [place] [phone] Nemo Banda MD [address] [place] [address] 10/04/2025 1:00 PM EDT Office Visit [facility] CARDIOLOGY [address] [facility] [address] [place] [phone] Braulio Choudhary PA [address] [facility] [address] [place] [address] Scheduled Procedures Name Priority Associated Diagnoses Date/Ti me ILEOSTOMY TAKEDOWN 09/16/202 5 10:32 AM EDT documented as of this encounter Visit Diagnoses Not on filedocumented in this encounter Care Teams Back Seam Stitcher Relationship Specialty Start Date End Date Ham Petit MD [address] [facility] [address] [facility] [place] [address] PCP - General Internal Medicine 04/08/16 documented as of this encounter
--- OUTSIDE RECORDS SUMMARY | 2025-02-02 12:51 | XMS_ITS | Encounter Summary ---
Author Organization [facility] Address [address] [place] [address] Care Team Providers Care Retail Department Supervisor Name Role Phone Ham Petit MD Primary Care Provider [phone] Encounter Details Date Type Department Care Team (Latest Contact Info) Description 01/22/2025 Travel Social History Tobacco Use Types Packs/Day Years Used Date Smoking Tobacco: Never Smokeless Tobacco: Never Alcohol Use Standard Drinks/Week Comments No 0 (1 standard drink = 0.6 oz pur e alcohol) [facility] Utilities Answer Date Recorded In the past 12 months has [employer], gas, oil, or water [email or web address] threatened to shut off services in your [...] care, and heating? Not very hard 10/12/2024 [facility] of Occupat ional Health - Occupational Stress [...] GED or equivalent No 10/12/2024 Preferred Language Japanese 10/12/2024 PHQ-2 Answer Date Recorded Patient Health [...] Description 02/14/2025 2:30 PM EDT Pre-Admission Testing [facility] PREADMISSION T [address] [place] [address] 02/20/2025 10:32 AM EDT Hospital Encounter [facility] OR [address] [place] [address] Ian Decker MD [address] [place] [address] 02/20/2025 10:32 AM EDT - 02/20/2025 12:24 PM EDT Surgery [facility] OR [address] [place] [address] Ian Decker MD [address] [place] [address] ILEOSTOMY TAKEDOWN 04/12/2025 1:45 PM EST Office Visit [facility] HEMATOLOGY & ONCOLOGY [address] [facility] [address] [place] [phone] Nemo Banda MD [address] [place] [address] 10/04/2025 1:00 PM EDT Office Visit [facility] CARDIOLOGY [address] [facility] [address] [place] [phone] Braulio Choudhary PA [address] [facility] [address] [place] [address] Scheduled Procedures Name Priority Associated Diagnoses Date/Ti me ILEOSTOMY TAKED[place] 09/16/202 5 10:32 AM EDT documented as of this encounter Visit Diagnoses Not on filedocumented in this encounter Care Teams Retail Department Supervisor Relationship Specialty Start Date End Date Ham Petit MD [address] [facility] [address] [facility] [place] [address] PCP - General Internal Medicine 04/08/16 documented as of this encounter
== END 2025-02-01 23:59 | disposition home or self-care (01) ==
LOC: LAB.DROPOF 02-02 12:47
PROVIDERS: PCP Internal Medicine; Visit Provider Internal Medicine
DX: D50.9 Iron deficiency anemia, unspecified (principal); I10 Essential (primary) hypertension; E78.5 Hyperlipidemia, unspecified; M15.0 Primary generalized (osteo)arthritis; D64.9 Anemia, unspecified; D72.819 Decreased white blood cell count, unspecified; E55.9 Vitamin D deficiency, unspecified
CPT/HCPCS: 80053; 80061; 82607; 82652; 85025